=== PATIENT | female | born 1950 | race Caucasian/White ===

== ENCOUNTER → 2019-07-02 | Outpatient (CLI) | payer MEDICARE, BC, OTHER ==
[~2019-07-02] MED LIST: ASPIR 8181 MG PO; BACLOFEN10 MG PO; CLARITIN-D 241 EACH PO; CRESTOR10 MG PO; CYMBALTA30 MG PO; EXCEDRIN PM PO; FLUOXETINE HCL20 M1 PO; IBUPROFEN400 MG PO; LEVOTHYROXINE50 MCG PO; MELOXICAM7.5 MG PO; PANTOPRAZOLE SO40 MG PO; TRAZODONE HCL100 MG PO
[2019-07-02 15:17] LABS: BASOPHILS % 0.4 % (0.0-1.0); EOSINOPHILS # (AUTO) 0.2 (0.0-0.4); EOSINOPHILS % 3.4 % (0.0-6.0); HEMATOCRIT 36.6 % (34.2-44.1); HEMOGLOBIN 12.1 g/dL (12.0-16.0); LYMPHOCYTES # (AUTO) 1.7 (1.0-3.2); LYMPHOCYTES % 30.7 % (18.0-39.1); MEAN CORPUSCULAR HEMOGLOBIN 32.1 pg (28-32); MEAN CORPUSCULAR HGB CONC 33.1 g/dL (31-35); MEAN CORPUSCULAR VOLUME 97.1 fL (81-99); MONOCYTES # (AUTO) 0.5 (0.2-0.8); NEUTROPHILS # (AUTO) 3.2 (2.1-6.9); NEUTROPHILS % 57.3 % (38.7-80.0); PLATELET COUNT 242 x10e3/uL (140-360); RED BLOOD COUNT 3.77 x10e6/uL (3.6-5.1); RED CELL DISTRIBUTION WIDTH 12.1 % (11.7-14.4)
--- NOTE | 2019-07-02 16:01 | Diagnostic Imaging Report ---
EXAMINATION: CHEST 2 VIEWS INDICATION: Pre-operative COMPARISON: None FINDINGS: LINES/TUBES:None LUNGS:The lungs are well-inflated. No focal consolidation or pulmonary edema. PLEURA:No pleural effusion or pneumothorax. MEDIASTINUM:The cardiomediastinal silhouette appears normal in size and shape. BONES/SOFT TISSUES:No acute osseous injury. Degenerative changes of the visualized spine. ABDOMEN:No free air under the diaphragm. IMPRESSION: No focal pneumonia or pulmonary edema. Signed by: Glenn Rojas MD on 07/02/2019 3:58 PM
--- OUTSIDE RECORDS SUMMARY | 2019-07-04 07:11 | XMS REPORT | Clinical Summary ---
Author Author [facility] Address Unknown Phone Unavailable Care Team Providers Care General Production Manager Name Role Phone Leigh Hernandez MD PCP Allergies Comments Active Allergy Reactions Severity Noted Date Sulfa (Sulfonamide 07/05/2016 Antibiotics) Medications End Date Status Medication Sig Dispensed Refills Start Date Active baclofen (LIORESAL) 10 MG 1 tablet 0 tablet three times a 7 day Active FLUoxetine (PROzac) 40 MG 1 capsule 0 capsule once a day 7 Active gabapentin (NEURONTIN) 1 capsule 0 300 mg capsule three times a 7 day Active levothyroxine (SYNTHROID, 1 tablet once 0 LEVOXYL) 100 mcg tablet a day 7 Active MYRBETRIQ 25 mg tablet 1 tablet once 0 extended release 24 hr a day 7 Active aspirin (ECOTRIN) 81 MG Take by 0 enteric coated tablet mouth. 1 tablet once a day Active loratadine (CLARITIN) 10 Take by 0 mg tablet mouth. 1 tablet once a day Active multivitamin Chew. Once a 0 tablet,chewable day Active traZODone (DESYREL) 100 Take 100 mg 0 MG tablet by mouth 9 daily. Active rosuvastatin (CRESTOR) 40 Take 40 mg by 0 201 MG tablet mouth daily. 9 Active pantoprazole (PROTONIX) Take 40 mg by 0 40 MG EC tablet mouth daily. 9 05/07/2019 Discontinued (Med List Cleanup) traMADol (ULTRAM) 50 mg Take by 0 tablet mouth. 1 tablet once a day 09/19/2018 atorvastatin (LIPITOR) 80 Take 1 tablet 30 tablet 11 MG tablet (80 mg total) 7 by mouth daily. Additional information Patient taking differently: (No dose reported), oral, (No frequency reported), 1 tablet once a day, Reported on 09/26/2017 3:43 PM 05/07/2019 Discontinued (Med List Cleanup) CALCIUM CARBONATE Take by 0 (CALCIUM 500 ORAL) mouth. 1 tablet once a day 09/14/2018 Discontinued (Reorder) evolocumab (REPATHA Inject 1 mL 6 Syringe 4 SURECLICK) 140 mg/mL pen (140 mg 8 injector injection total) under the skin every 14 (fourteen) days. 02/04/2019 Discontinued (Reorder) evolocumab (REPATHA Inject 1 mL 6 Syringe 4 SURECLICK) 140 mg/mL pen (140 mg 8 injector total) under injectionIndications: the skin Hyperlipidemia LDL goal every 14 <70, Mixed hyperlipidemia (fourteen) days. 02/04/2019 Discontinued (Reorder) atorvastatin (LIPITOR) 80 Take 80 mg by 0 MG tablet mouth daily. 05/07/2019 Discontinued (Med List Cleanup) atorvastatin (LIPITOR) 80 Take 1 tablet 90 tablet 4 MG tablet (80 mg total) 9 by mouth daily. 05/07/2019 Discontinued (Med List Cleanup) evolocumab (REPATHA Inject 1 mL 6 Syringe 4 SURECLICK) 140 mg/mL pen (140 mg 9 injector total) under injectionIndications: the skin Hyperlipidemia LDL goal every 14 <70, Mixed hyperlipidemia (fourteen) days. Active Problems Problem Noted Date Hypothyroidism (acquired) 09/26/2017 Dyslipidemia 09/26/2017 Essential hypertension 09/26/2017 Cerebrovascular accident (CVA) 09/26/2017 Overview: JUN 2015 S/P REHAB AND WALKING ON HER OWN WITH CANE AT HOME THAN FELL WITH 2 LEFT HIP FRACTURE NOW STILL IN PHYSICAL THERAPY F?U WITH DR TORRES ; KIANNA;L BE PART OF RESEARCH ; NOW REFERRED FOR PT/OCCUPATIONAL THERAPY Continuous leakage of urine 09/26/2017 Hip fracture 09/26/2017 Encounters Care Team Description Date Type Specialty Luis Fernando Coy MD History of stroke (Primary Dx); Cognitive impairment; Mixed hyperlipidemia 05/07/2019 Office Visit Neurology Sarwat Isaac MD 04/05/2019 Telephone Neurology Sarwat Isaac MD Cerebral infarction, unspecified mechanism (HCC) (Primary Dx); Hyperlipidemia LDL goal <70; Mixed hyperlipidemia 02/04/2019 Office Visit Neurology Sammy Collins NP Hyperlipidemia LDL goal <70 (Primary Dx); Mixed hyperlipidemia 09/14/2018 Orders Only Neurology Katie Phan 09/14/2018 Telephone Neurology Sarawt Isaac MD Impending cerebrovascular accident (HCC) (Primary Dx) 08/06/2018 Lab Lab Sarwat Isaac MD Cerebral infarction, unspecified mechanism (HCC) (Primary Dx) 08/06/2018 Office Visit Neurology Katie Phan 08/06/2018 Telephone Neurology after 07/03/2018 Family History Medical History Relation Name Comments No Known Problems Brother Heart disease Father Lung cancer Maternal Grandfather Emphysema Mother Lung cancer Mother Relation Name Status Comments Brother Alive homeless Father (Age 69) Maternal Grandfather Maternal Grandmother Mother (Age 69) Paternal Grandfather Paternal Grandmother Social History Date Tobacco Use Types Packs/Day Years Used Current Every Day Smoker Cigarettes 0.5 30 Smokeless Tobacco: Never Used Drinks/Week oz/Week Comments Alcohol Use No Sex Assigned at Date Recorded Not on file Industry Job Start Date Occupation Not on file Not on file Not on file Travel End Travel History Travel Start No recent travel history available. Last Filed Vital Signs Reading Time Taken Comments Vital Sign 128/72 05/07/2019 3:29 PM CDT Blood Pressure 92 05/07/2019 3:29 PM CDT Pulse - - Temperature - - Respiratory Rate - - Oxygen Saturation - - Inhaled Oxygen Concentration 58.5 kg (129 lb) 05/07/2019 3:29 PM CDT Weight 160 cm (5' 3") 05/07/2019 3:29 PM CDT Height 22.85 05/07/2019 3:29 PM CDT Body Mass Index Plan of Treatment Care Team Description Date Type Specialty Aliza Lyles MD [address] [facility] [address] [place] [address] [phone] 07/15/2019 Office Visit Neurology Sarwat Isaac MD [address] [facility] [address] [place], [place] [id number] 08/12/2019 Office Visit Neurology Minerva Alvarado, PhD [address] [facility] [address] [place] [address] 08/27/2019 Office Visit Neuropsychology Health Maintenance Due Date Last Done Comments SHINGLES VACCINES (#1) 1998 65+ PNEUMOCOCCAL VACCINE 2013 (1 of 2 - PCV13) BREAST CANCER SCREENING 10/09/2015 10/09/2013 INFLUENZA VACCINE 05/09/2019 COLONOSCOPY SCREENING 10/09/2023 10/09/2013 Procedures Comments Procedure Name Priority Date/Time Associated Diagnosis BASIC METABOLIC PANEL Routine 05/30/2019 History of stroke 9:52 AM CDT LIPID PANEL Routine 05/30/2019 Mixed hyperlipidemia 9:52 AM CDT US CAROTID DUPLEX Routine 02/07/2019 Cerebral infarction, BILATERAL 12:00 PM CDT unspecified mechanism (HCC) PV TRANSCRANIAL DOPPLER Routine 02/07/2019 Cerebral infarction, INTRACRANIAL ARTERIES 12:00 PM CDT unspecified mechanism COMPLETE (HCC) ESTIMATED GFR Routine 08/06/2018 1:50 PM CDT COMPREHENSIVE METABOLIC Routine 08/06/2018 Impending cerebrovascular PANEL 1:50 PM CDT accident (HCC) LIPID PANEL Routine 08/06/2018 Impending cerebrovascular 1:50 PM CDT accident (HCC) after 07/03/2018 Results * Lipid panel (05/30/2019 9:52 AM CDT) Only the most recent of 2 results within the time period is included. [facility] Cholesterol, 186 <200 mg/dL [facility] [place] HDL cholesterol 63 >50 mg/dL [facility] [place] Triglycerides 146 <150 mg/dL [facility] [place] LDL cholesterol 98 mg/dL (calc) [facility] calculated Comment: [facility] Reference range: <100 [place] Desirable range <100 mg/dL for primary prevention; <70 mg/dL for patients with CHD or diabetic patients with > or=2 CHD risk factors. LDL-C is now calculated using the Vi calculation, which is a validated novel method providing better accuracy than the Friedewald equation in the estimation of LDL-C. Elmer MARTINEZ et al. [place]. 2013;310(19): 5380-5502 (http://education.AnyPerk.com/faq/RDQ445) Cholesterol/HDL 3.0 <5.0 (calc) [facility] [place] Non-HDL 123 <130 mg/dL (calc) [facility] cholesterol Comment: DIAGNO[facility] For patients with diabetes [place] plus 1 major ASCVD risk factor, treating to a non-HDL-C goal of <100 mg/dL (LDL-C of <70 mg/dL) is considered a therapeutic option. Specimen Blood Narrative Performed At FASTING:YES [facility] FASTING: YES Resulting Agency Comment Performing Organization Information: Site ID: [id number] Name: [facility] Address: [address] [place] [id number] Director: Hilario Funes Performing Organization Address City/State/Zipcode Phone Number [facility] [employer] [address] [address] * Basic metabolic panel (05/30/2019 9:52 AM CDT) Pathologist [facility] Glucose 142 (H) 65 - 99 mg/dL [facility] Comment: DIAGNOSTICS Fasting [place] reference interval For someone without known diabetes, a glucose value >125 mg/dL indicates that they may have diabetes and this should be confirmed with a follow-up test. BUN 19 7 - 25 mg/dL [facility] [place] Creatinine 1.10 (H) 0.60 - 0.93 mg/dL [facility] Comment: DIAGNOSTICS For patients >49 years of age, [place] the reference limit for Creatinine is approximately 13% higher for people identified as -[place]. EGFR Non-Afr. 50 (L) > OR=60 [facility] [place] mL/min/1.73m2 [facility] EGFR 58 (L) > OR=60 [facility] [place] mL/min/1.73m2 [facility] BUN/creatinine 17 6 - 22 (calc) [facility] ratio [facility] [place] Sodium 139 135 - 146 mmol/L [facility] [place] Potassium 4.4 3.5 - 5.3 mmol/L [facility] [place] Chloride 104 98 - 110 mmol/L [facility] [place] CO2 29 20 - 32 mmol/L [facility] [place] Calcium 9.0 8.6 - 10.4 mg/dL [facility] Specimen Blood Narrative Performed At FASTING:YES [facility] FASTING: YES Resulting Agency Comment Performing Organization Information: Site ID: [id number] Name: [facility] Address: [address] [place] [id number] Director: Hilario Funes Performing Organization Address City/[facility] Phone Number [employer] [place] [address] [place] [address] * Pv transcranial Doppler intracranial arteries (02/07/2019 12:00 PM CDT) Specimen Narrative Performed At [facility] [employer] Clinical Indications/Diagnosis: Equipment: [employer] (formerly [employer]) PMD 150 Vessel RIGHTLEFT Ophthalmic Artery Antegrade Antegrade Siphon bruit bruit Anterior Cerebral Artery Normal Normal Middle Cerebral Artery Normal- TIBI 5 Normal- TIBI 5 Posterior Cerebral ArteryNormal Normal Verterbral Artery Normal Normal Basilic Artery Normal Normal TCD MonitoringNegative Negative BHI: >0.69 (normal) AbnormalAbnormal Head Turning Findings: normal cerebral hemodynamic flow seen. normal distal ICA and vertibrobasilar flow seen. Negative spontaneous emboli were detected. BHI: Right MCA=(69-61/61)x100/20=0.66 BHI: Left MCA=(56-53/53)x100/20=0.28 Physician Interpretation of TCD: 1) There is no stenosis in the distal internal carotid arteries or vertebrobasilar arteries. 2) No hemodynamically significant intracranial stenoses in the major branches of the [place]. 3) No spontaneous emboli were detected during monitoring. 4) The cerebrovascular reserve is decreased on the left greater than the right on breath holding. Recommend ultrasound follow-up in 1-2 years or sooner if symptoms develop. Performing Organization Address [facility] Phone Number [employer] [address] [place] [address] * Us carotid duplex (02/07/2019 12:00 PM CDT) L CCA Prox 29 cm/s cm/s [facility] L CCA Prox 77 cm/s cm/s [facility] L ECA Prox 15.00 cm/s cm/s [facility] L ECA Prox 77 cm/s cm/s [facility] R ECA Prox 16.00 cm/s cm/s [facility] L ICA Prox 48 cm/s cm/s [facility] L ICA Prox 168 cm/s cm/s [facility] R ICA Prox 87 cm/s cm/s [facility] R ICA Prox 261 cm/s cm/s [facility] L ICA/CCA Ratio 2.2 cm/s [facility] R ICA/CCA Ratio 4.8 cm/s [facility] R CCA Prox 0 cm/s cm/s [facility] R CCA Prox 55 cm/s cm/s [facility] R ICA Dist 14 cm/s cm/s [facility] R ICA Mid 20 cm/s cm/s [facility] L ICA Dist 24 cm/s cm/s [facility] L ICA DIST 77 cm/s cm/s [facility] R Vert Art 14.00 cm/s cm/s [facility] R ECA Prox 97.00 cm/s cm/s [facility] L ICA Mid 30 cm/s cm/s [facility] L ICA Mid 123 cm/s cm/s [facility] R ICA Dist 34 cm/s cm/s [facility] R ICA Mid 66 cm/s cm/s [facility] L Vert Art 16.00 cm/s cm/s [facility] L Vert Art 45 cm/s cm/s [facility] R Vert Art 44.00 cm/s cm/s [facility] Specimen Narrative Performed At [facility] Physician Interpretation of Carotid Doppler: 1) There is diffuse, calcified plaque in the bilateral carotid arteries. 2) The right internal carotid artery has 70-90% stenosis. 3) The left internal carotid artery has 50-69% stenosis. 4) There are no hemodynamically significant stenoses. 5) Both vertebral arteries flow antegrade. Recommend ultrasound follow-up in 1-2 years or sooner if symptoms develop. Performing Organization Address City/State/Zipcode Phone Number [facility] [address] [place] [address] * Estimated GFR (08/06/2018 1:50 PM CDT) Estimated GFR 65 mL/min/1.73 m2 [facility] DEPARTMENT Comment: OF PATHOLOGY CatergoryUnitsInte AND GENOMIC rpretation MEDICINE G1 >=90 Normal or high G2 60-89Mildly decreased [id number] Mildly to moderately decreased [id number] Moderately to severely decreased G4 15-29Severely decreased G5 <15Kidney failure The eGFR was calculated using the Chronic Kidney Disease Epidemiology Collaboration (CKD-EPI) equation. Interpretation is based on recommendations of the National Kidney Foundation-Kidney Disease Outcomes Quality Initiative (NKF-KDOQI) published in 2014. Specimen Plasma specimen Performing Organization Address City/State/Zipcode Phone Number [address] [address] PATHOLOGY AND GENOMIC MEDICINE * Comprehensive metabolic panel (08/06/2018 1:50 PM CDT) Sodium 138 135 - 148 mEq/L [facility] DEPARTMENT OF PATHOLOGY AND GENOMIC MEDICINE Potassium 5.3 (H) 3.5 - 5.0 mEq/L [facility] DEPARTMENT OF PATHOLOGY AND GENOMIC MEDICINE Chloride 102 98 - 112 mEq/L [facility] DEPARTMENT OF PATHOLOGY AND GENOMIC MEDICINE CO2 26 24 - 31 mEq/L [facility] DEPARTMENT OF PATHOLOGY AND GENOMIC MEDICINE Anion gap 10@ANIO 7 - 15 mEq/L [facility] DEPARTMENT OF PATHOLOGY AND GENOMIC MEDICINE BUN 28 (H) 8 - 23 mg/dL [facility] DEPARTMENT OF PATHOLOGY AND GENOMIC MEDICINE Creatinine 0.90 0.50 - 0.90 mg/dL [facility] DEPARTMENT OF PATHOLOGY AND GENOMIC MEDICINE Glucose 93 65 - 99 mg/dL [facility] DEPARTMENT OF PATHOLOGY AND GENOMIC MEDICINE Calcium 9.4 8.8 - 10.2 mg/dL [facility] DEPARTMENT OF PATHOLOGY AND GENOMIC MEDICINE Protein 7.1 6.3 - 8.3 g/dL [facility] DEPARTMENT Comment: OF PATHOLOGY [place] AND GENOMIC 4.6-7.0 g/dL MEDICINE 1 week 4.4-7.6 g/dL 7 months-1year 5.1-7.3 g/dL 1-2 years5.6-7 .5 g/dL >3 years6.0-8 .0 g/dL 18-150 6.3-8.3 g/dL Albumin 3.8 3.5 - 5.0 g/dL [facility] DEPARTMENT OF PATHOLOGY AND GENOMIC MEDICINE A/G ratio 1.2 0.7 - 3.8 [facility] DEPARTMENT OF PATHOLOGY AND GENOMIC MEDICINE Alkaline 80 35 - 104 U/L [facility] DEPARTMENT phosphatase OF PATHOLOGY AND GENOMIC MEDICINE AST 35 10 - 35 U/L [facility] DEPARTMENT OF PATHOLOGY AND GENOMIC MEDICINE ALT 65 (H) 5 - 50 U/L [facility] DEPARTMENT OF PATHOLOGY AND GENOMIC MEDICINE Total bilirubin <0.2 0.0 - 1.2 mg/dL [facility] DEPARTMENT OF PATHOLOGY AND GENOMIC MEDICINE Specimen Plasma specimen Performing Organization Address City/State/Zipcode Phone Number [place] [address] [address] [place] [address] PATHOLOGY AND GENOMIC MEDICINE after 07/03/2018 Insurance Type Payer Benefit Subscriber ID Effective Phone Address Plan / Dates Group Medicare MEDICARE MEDICARE xxxxxxxxxxx 2014-P AYDE, PART A AND resent [place] B PPO BCBS BCBS xxxxxxxxxxxx 2016- CHOICE Present PPO/NADJA [employer] PPO Advance Directives For more information, please contact: [phone] Patient Physician Office Rep Explanation Type Date Recorded Advance Directives, Living Will and Medical Power of Aquacultural Worker Supervisor Advance Directives, 10/30/2017 1:40 AM Living Will and Medical Power of Aquacultural Worker Supervisor
--- OUTSIDE RECORDS SUMMARY | 2019-07-04 07:11 | XMS REPORT | Clinical Summary ---
Author Author TAYLER [email or web address] [facility] Address Unknown Phone Unavailable Care Team Providers Care Law Office Assistant Name Role Phone Tiago Dong MD PCP Allergies Not on File Medications Not on file Active Problems Not on file Encounters Care Team Description Date Type Specialty Yuriy Adam MD Essential hypertension, malignant; Familial combined hyperlipidemia; Bilateral carotid artery occlusion 09/17/2018 Hospital Encounter Yuriy Adam MD Essential hypertension, malignant (Primary Dx); Familial combined hyperlipidemia; Bilateral carotid artery occlusion 09/17/2018 Orders Only Lab Yuriy Adam MD Essential hypertension, malignant (Primary Dx); Familial combined hyperlipidemia; Bilateral carotid artery occlusion 09/17/2018 Outside Orders after 07/03/2018 Social History Date Tobacco Use Types Packs/Day Years Used Never Assessed Sex Assigned at Date Recorded Not on file Industry Job Start Date Occupation Not on file Not on file Not on file Travel End Travel History Travel Start No recent travel history available. Last Filed Vital Signs Not on file Plan of Treatment Not on file Procedures Comments Procedure Name Priority Date/Time Associated Diagnosis XR CHEST 2 VIEWS Routine 09/17/2018 Essential hypertension, 12:25 PM [employer] malignant Familial combined hyperlipidemia Bilateral carotid artery occlusion CBC W/PLT COUNT & AUTO Routine 09/17/2018 Essential hypertension, DIFFERENTIAL 11:45 AM [employer] malignant Familial combined hyperlipidemia Bilateral carotid artery occlusion BASIC METABOLIC PANEL (7) Routine 09/17/2018 Essential hypertension, 11:45 AM [employer] malignant Familial combined hyperlipidemia Bilateral carotid artery occlusion CBC W/PLT COUNT & AUTO Routine 09/17/2018 Essential hypertension, DIFFERENTIAL 11:45 AM [employer] malignant Familial combined hyperlipidemia Bilateral carotid artery occlusion LIPID PANEL Routine 09/17/2018 Essential hypertension, 11:45 AM [employer] malignant Familial combined hyperlipidemia Bilateral carotid artery occlusion HEPATIC FUNCTION PANEL Routine 09/17/2018 Essential hypertension, 11:45 AM [employer] malignant Familial combined hyperlipidemia Bilateral carotid artery occlusion after 07/03/2018 Results * XR Chest 2 Views (09/17/2018 12:25 PM [employer]) Specimen Narrative Performed At FINAL REPORT GE RIS INDICATION: i65.23 COMPARISON: None TECHNIQUE: Frontal and lateral views of the chest. FINDINGS: Lungs and pleura: Clear lungs. No effusion. Heart and mediastinum: Normal heart size. Unremarkable mediastinal contours. Osseous structures: No acute abnormality. Additional findings: None. IMPRESSION: No acute intrathoracic abnormality. Signed: JR Bell Robert MD Report Verified Date/Time:09/17/2018 12:32:08 Reading Location: [facility] Radiology Reading Room Procedure Note Interface, External Ris In - 09/17/2018 12:34 PM [employer] FINAL REPORT INDICATION: i65.23 COMPARISON: None TECHNIQUE: Frontal and lateral views of the chest. FINDINGS: Lungs and pleura: Clear lungs. No effusion. Heart and mediastinum: Normal heart size. Unremarkable mediastinal contours. Osseous structures: No acute abnormality. Additional findings: None. IMPRESSION: No acute intrathoracic abnormality. Signed: JR Bell Robert MD Report Verified Date/Time: 09/17/2018 12:32:08 Reading Location: [facility] Radiology Reading Room Performing Organization Address City/State/Zipcode Phone Number [facility] * CBC with platelet count + automated diff (09/17/2018 11:45 AM [employer]) WBC 6.1 3.5 - 10.5 K/L [facility] RBC 4.23 3.93 - 5.22 M/L [facility] Hemoglobin 13.7 11.2 - 15.7 GM/DL [facility] Hematocrit 40.9 34.1 - 44.9 % [facility] MCV 96.7 (H) 79.4 - 94.8 fL [facility] MCH 32.4 (H) 25.6 - 32.2 pg [facility] MCHC 33.5 32.2 - 35.5 GM/DL [facility] RDW 11.9 11.7 - 14.4 % [facility] Platelets 289 150 - 450 K/CU MM [facility] MPV 9.7 9.4 - 12.3 fL [facility] nRBC 0 0 - 0 /100 WBC [facility] % Neutros 66 % [facility] % Lymphs 22 % [facility] % Monos 8 % [facility] % Eos 4 % [facility] % Baso 1 % [facility] # Neutros 4.00 1.56 - 6.13 K/L [facility] # Lymphs 1.31 1.18 - 3.74 K/L [facility] # Monos 0.49 (H) 0.24 - 0.36 K/L [facility] # Eos 0.21 0.04 - 0.36 K/L [facility] # Baso 0.03 0.01 - 0.08 K/L [facility] Immature 0 0 - 1 % [facility] Granulocytes-Relative [facility] Specimen Blood Performing Organization Address City/State/Zipcode Phone Number [facility] [address] [place] [address] [facility] * Hepatic function panel (09/17/2018 11:45 AM [employer]) Protein, Total 7.4 6.0 - 8.3 gm/dL [facility] Albumin 4.3 3.5 - 5.0 g/dL [facility] Total Bilirubin 0.3 0.2 - 1.2 mg/dL [facility] Bilirubin, Direct 0.1 0.1 - 0.5 mg/dL [facility] Alkaline Phosphatase 68 40 - 150 U/L [facility] AST 30 5 - 34 U/L [facility] ALT 34 6 - 55 U/L [facility] Specimen Blood Performing Organization Address City/[facility] Phone Number [address] [address] [facility] * Lipid panel (09/17/2018 11:45 AM [employer]) Triglycerides 186 mg/dL [facility] Cholesterol 218 mg/dL [facility] HDL 69 mg/dL [facility] LDL Calculated 112 mg/dL [facility] Specimen Blood Narrative Performed At Triglyceride Reference Range: [facility] Low Risk <150 [facility] [id number] High Risk 200-499 Very High Risk>=500 Cholesterol Reference Range: Low Risk <200 [id number] High Risk>240 HDL Cholesterol Reference Range: Low Risk >=60 High Risk <40 LDL Cholesterol Reference Range: Optimal<100 Near [id number] Very High >=190 Performing Organization Address City/[facility] Phone Number [address] [address] [facility] * Basic Metabolic Panel (09/17/2018 11:45 AM [employer]) Sodium 137 136 - 145 meq/L [facility] Potassium 4.5 3.5 - 5.1 meq/L [facility] Chloride 104 98 - 107 meq/L [facility] CO2 25 22 - 29 meq/L [facility] BUN 25 (H) 7 - 21 mg/dL [facility] Creatinine 0.93 0.57 - 1.25 mg/dL [facility] Glucose 89 70 - 105 mg/dL [facility] Calcium 9.7 8.4 - 10.2 mg/dL [facility] EGFR 60Comment: ESTIMATED GFR IS mL/min/1.73 sq m [facility] NOT ACCURATE CREATININE [facility] CLEARANCE IN PREDICTING GLOMERULAR FILTRATION RATE. ESTIMATED GFR IS NOT APPLICABLE FOR DIALYSIS PATIENTS. Specimen Blood Performing Organization Address City/State/Zipcode Phone Number [facility] [address] [place] [address] [facility] after 07/03/2018 Insurance Payer Benefit Subscriber ID Type Phone Address Plan / Group MEDICARE MEDICARE A xxxxxxxxxxx Medicare B BLUE CROSS/BLUE SHIELD BCBS PPO xxxxxxxxxxxx PPO [phone] [address] [place] [address] CHOICE
--- OUTSIDE RECORDS SUMMARY | 2019-07-04 07:12 | XMS REPORT | Summary of Care ---
Author Author [facility] Address Unknown Phone Unavailable Encounter [facility] Jaimie(GARRET) [id number] Date(s): 09/25/15 - 10/24/15 [place] [id number] [address] Discharge Disposition: Home Attending Physician: Cokoie Rockwell MD Vital Signs No data available for this section Problem List Condition Effective Dates Status Health Status Informant CVA (cerebral Active infarction)(Confirme d) Stroke(Confirmed) Active Hemiplegia of Active nondominant side following CVA (cerebrovascular accident)(Confirmed) Hyperlipidemia(Confi Active rmed) Hypertension(Confirm Active ed) Cognitive deficit Active S/P CVA (cerebrovascular accident)(Confirmed) Hemineglect(Confirme Active d) Oropharyngeal Active dysphagia(Confirmed) Spasticity(Confirmed Resolved ) Thyroid Active disorder(Confirmed) Tobacco Active abuse(Confirmed) Allergies, Adverse Reactions, Alerts Substance Reaction Severity Status sulfa drugs Active Medications No data available for this section Results No data available for this section Immunizations No data available for this section Procedures No data available for this section Social History Social History Type Response Smoking Status Former smoker; Type: Cigarettes; Previous treatment: None; Ready to change: Yes; Concerns about tobacco use in household: No; Exposure to Tobacco Smoke None; Cigarette Smoking Last 365 Days Yes; Reg Smoking Cessation Counseling Yes Assessment and Plan No data available for this section
--- OUTSIDE RECORDS SUMMARY | 2019-07-04 07:12 | XMS REPORT | Summary of Care ---
Author Author [facility] Address Unknown Phone Unavailable Encounter CLARITZA Etienne(GARRET) [id number] Date(s): 08/26/15 - 09/24/15 [facility] [address] [place], [place] [id number] [place] [address] Discharge Disposition: Home Attending Physician: Brett Castro MD Vital Signs Most recent to 1 oldest [Reference Range]: Blood Pressure 137/77 mmHg [90-140/60-90 mmHg] (08/28/15 1:20 PM) Problem List Condition Effective Dates Status Health [...]
--- OUTSIDE RECORDS SUMMARY | 2019-07-04 07:12 | XMS REPORT | Summary of Care ---
Author Author [facility] Organization [facility] Address Unknown Phone Unavailable Encounter CLARITZA Etienne(GARRET) [id number] Date(s): 06/25/15 - 07/21/15 [facility] [id number] [place] [id number] Final: Discharge Disposition: Home Attending Physician: Brett Castro MD Admitting Physician: Brett Castro MD Vital Signs 1 2 3 Most recent to oldest [Reference Range]: 160 cm (06/30/15 6:27 PM) 160.02 cm (06/25/15 3:38 PM) Height 1 2 3 Most recent to oldest [Reference Range]: 98.9 DegF (07/21/15 8:36 AM) 98.3 DegF (07/20/15 8:48 PM) 97.9 DegF (07/20/15 4:58 PM) Temperature Oral [96.4-99.1 DegF] 1 2 3 Most recent to oldest [Reference Range]: 129/77 mmHg (07/20/15 8:48 PM) Blood Pressure [90-140/60-90 mmHg] 131 mmHg (07/21/15 8:36 AM) 129 mmHg (07/20/15 4:58 PM) Systolic Blood Pressure [90-140 mmHg] 1 2 3 Most recent to oldest [Reference Range]: 72 mmHg (07/21/15 8:36 AM) 71 mmHg (07/20/15 4:58 PM) Diastolic Blood Pressure [60-90 mmHg] 1 2 3 Most recent to oldest [Reference Range]: 16 BRMIN (07/21/15 8:36 AM) 16 BRMIN (07/20/15 8:48 PM) 16 BRMIN (07/20/15 4:58 PM) Respiratory Rate [14-20 BRMIN] 1 2 3 Most recent to oldest [Reference Range]: 68 bpm (07/21/15 8:36 AM) 70 bpm (07/20/15 8:48 PM) 73 bpm (07/20/15 4:58 PM) Peripheral Pulse Rate [60-100 bpm] 1 2 3 Most recent to oldest [Reference Range]: 71.4 kg (06/27/15 6:34 PM) 70.455 kg (06/25/15 3:38 PM) Weight 1 2 3 Most recent to oldest [Reference Range]: 27.89 m2 (06/30/15 6:27 PM) 27.51 m2 (06/25/15 3:38 PM) Body Mass Index Problem List Condition Effective Dates Status Health Status Informant CVA (cerebral Active infarction)(Confirme d) Hemiplegia of Active nondominant side following CVA (cerebrovascular accident)(Confirmed) Hyperlipidemia(Confi Active rmed) Hypertension(Confirm Active ed) Cognitive deficit Active S/P CVA (cerebrovascular accident)(Confirmed) Hemineglect(Confirme Active d) Oropharyngeal Active dysphagia(Confirmed) Thyroid Active disorder(Confirmed) Tobacco Active abuse(Confirmed) Allergies, Adverse Reactions, Alerts Substance Reaction Severity Status NKDA Active Medications acetaminophen 325 mg oral tablet 650 mg=2 tab, PO, Q6H, PRN Pain Score 6-10, 0 Refill(s) Start Date: 07/21/15 Status: Ordered aspirin 81 mg tablet, enteric coated 81 mg, 1 tab, Route: PO, Drug form: ECTAB, Daily, Dosing Weight 70.455, kg, Star t date: 06/26/15 6:30:00, Duration: 30 day, Stop date: 08/24/15 6:30:00 Notes: Do not crush or chew.(Same As: Ecotrin) Start Date: 06/26/15 Stop Date: 07/21/15 Status: Discontinued aspirin 81 mg tablet, enteric coated 81 mg=1 tab, PO, Daily, # 120 tab, 0 Refill(s) Start Date: 07/21/15 Stop Date: 11/18/15 Status: Ordered baclofen 15 mg, 1.5 tab, Route: PO, Drug form: TAB, TID, Dosing Weight 71.4, kg, Start da te: 07/01/15 13:00:00, Stop date: 07/31/15 9:00:00 Notes: (Same As: Lioresal) Start Date: 07/01/15 Stop Date: 07/21/15 Status: Discontinued baclofen 10 mg, 1 tab, Route: PO, Drug form: TAB, Bedtime, Dosing Weight 70.455, kg, Star t date: 06/25/15 21:00:00, Duration: 30 day, Stop date: 07/24/15 21:00:00 Notes: (Same As: Lioresal) Start Date: 06/25/15 Stop Date: 07/01/15 Status: Discontinued baclofen 10 mg oral tablet 15 mg=1.5 tab, PO, TID, # 135 tab, 0 Refill(s) Start Date: 07/21/15 Stop Date: 08/20/15 Status: Ordered bisacodyl 10 mg, 1 supp, Route: HI, Drug form: SUPP, Daily, Dosing Weight 70.455, kg, PRN Constipation, Start date: 06/26/15 11:24:00, Duration: 30 day, Stop date: 11:23:00 Notes: (Same As: Dulcolax, Bisco-Lax) Start Date: 06/26/15 Stop Date: 07/21/15 Status: Discontinued Claritin 10 mg, 1 tab, Route: PO, Drug form: TAB, Daily, Start date: 06/26/15 6:30:00, Du ration: 30 day, Stop date: 08/24/15 6:30:00 Notes: 1 hr before meals (Same as: Claritin) Start Date: 06/26/15 Stop Date: 07/21/15 Status: Discontinued Crestor 30 mg, 3 tab, Route: PO, Drug form: TAB, Bedtime, Dosing Weight 70.455, kg, Star t date: 06/25/15 21:00:00, Duration: 30 day, Stop date: 08/23/15 21:00:00 Notes: (Same As: Crestor) Start Date: 06/25/15 Stop Date: 07/21/15 Status: Discontinued Crestor 20 mg oral tablet 20 mg=1 tab, PO, Daily, # 30 tab, 0 Refill(s) Start Date: 07/21/15 Stop Date: 08/20/15 Status: Ordered docusate sodium 100 mg oral capsule 100 mg, 1 cap, Route: PO, Drug form: CAP, BID, Dosing Weight 70.455, kg, Start d ate: 06/25/15 17:00:00, Duration: 30 day, Stop date: 07/25/15 9:00:00 Notes: (Same as: Colace) (Do Not Crush) Start Date: 06/25/15 Stop Date: 06/26/15 Status: Discontinued enoxaparin 40 mg, 0.4 mL, Route: SUB-Q, Drug form: INJ, [id number], Dosing Weight 70.455, kg, Start date: 06/26/15 12:00:00, Duration: 30 day, Stop date: 08/24/15 21:00:00 Notes: (Same as: Lovenox) Start Date: 06/26/15 Stop Date: 07/21/15 Status: Discontinued FLUoxetine 40 mg oral capsule 40 mg=1 cap, PO, Daily, # 30 cap, 0 Refill(s) Start Date: 07/21/15 Stop Date: 08/20/15 Status: Ordered Habitrol 7 mg, 1 patch, Route: TOP, Drug form: ERFILM, Daily, Dosing Weight 70.455, kg, S tart date: 06/26/15 9:00:00, Duration: 30 day, Stop date: 08/24/15 9:00:00 Notes: (Same as: Habitrol)"Remove old patch before application of new patch" Start Date: 06/26/15 Stop Date: 07/21/15 Status: Discontinued ibuprofen 400 mg, 1 tab, Route: PO, Drug form: TAB, Q4H, Dosing Weight 71.4, kg, PRN Pain Score 4-6, Start date: 06/28/15 18:12:00, Duration: 30 day, Stop date: 07/28/15 18:11:00 Notes: (Same as: Motrin)"Do Not Crush" Give with food. Start Date: 06/28/15 Stop Date: 07/21/15 Status: Discontinued Levothroid 125 microgram, 1 tab, Route: PO, Drug form: TAB, [id number], Dosing Weight 70.455, k g, Start date: 06/26/15 6:30:00, Duration: 30 day, Stop date: 08/24/15 6:30:00 Notes: Take 1 hour before or 2 hours after meal; Enteral feeds may interefere wi th the absorption of this medication. (Same as:Levothroid) Start Date: 06/26/15 Stop Date: 07/21/15 Status: Discontinued levothyroxine 125 mcg (0.125 mg) oral tablet 125 microgram=1 tab, PO, Daily, # 30 tab, 0 Refill(s) Start Date: 07/21/15 Stop Date: 08/20/15 Status: Ordered lisinopril 10 mg, 1 tab, Route: PO, Drug form: TAB, Daily, Dosing Weight 70.455, kg, Start date: 06/27/15 9:00:00, Duration: 30 day, Stop date: 08/25/15 9:00:00 Notes: (Same as: Prinivil, Zestril) Start Date: 06/27/15 Stop Date: 07/21/15 Status: Discontinued lisinopril 10 mg oral tablet 10 mg=1 tab, PO, Daily, # 30 tab, 0 Refill(s) Start Date: 07/21/15 Stop Date: 08/20/15 Status: Ordered Lovenox 30 mg, 0.3 mL, Route: SUB-Q, Drug form: INJ, [id number], Dosing Weight 70.455, kg, For CrCl <30mL/min, Start date: 06/26/15 11:00:00, Duration: 30 day, Stop date: 07/25/15 11:00:00 Notes: (Same as: Lovenox) Start Date: 06/26/15 Stop Date: 06/26/15 Status: Discontinued MiraLax 17 gm, 1 pkt, Route: PO, Drug form: PWDR, BID, Dosing Weight 70.455, kg, PRN Con stipation, Start date: 06/26/15 11:24:00, Duration: 30 day, Stop date: 08/25/15 11:23:00 Notes: Dissolve in 8 oz of water or juice.(Same as: Miralax) Start Date: 06/26/15 Stop Date: 07/21/15 Status: Discontinued nicotine 7 mg/24 hr transdermal film, extended release =1 patch, TOP, Daily, X 7 day, # 7 patch, 0 Refill(s) Start Date: 07/21/15 Stop Date: 07/28/15 Status: Ordered PROzac 40 mg, 2 cap, Route: PO, Drug form: CAP, Daily, Dosing Weight 70.455, kg, Start date: 06/26/15 6:30:00, Duration: 30 day, Stop date: 08/24/15 6:30:00 Notes: (Same as: Prozac, Sarafem) Start Date: 06/26/15 Stop Date: 07/21/15 Status: Discontinued tramadol 50 mg, 1 tab, Route: PO, Drug form: TAB, Q6H, Dosing Weight 71.4, kg, PRN Pain S core 4-6, Start date: 06/28/15 18:12:00, Duration: 30 day, Stop date: 07/28/15 1 8:11:00 Notes: Not to exceed 400mg/day. (Same As: Ultram) Start Date: 06/28/15 Stop Date: 07/21/15 Status: Discontinued trazodone 50 mg, 1 tab, Route: PO, Drug form: TAB, Bedtime, Dosing Weight 70.455, kg, PRN Insomnia, Start date: 06/25/15 15:37:00, Duration: 30 day, Stop date: 07/25/15 1 5:36:00 Notes: (Same As: Selwyn) Start Date: 06/25/15 Stop Date: 06/29/15 Status: Discontinued trazodone 25 mg, 0.5 tab, Route: PO, Drug form: TAB, Bedtime, Dosing Weight 70.455, kg, HI N Insomnia, Start date: 06/29/15 10:23:00, Duration: 30 day, Stop date: 07/29/15 10:22:00 Notes: (Same As: Selwyn) Start Date: 06/29/15 Stop Date: 07/21/15 Status: Discontinued trazodone 50 mg oral tablet 50 mg=1 tab, PO, Bedtime, PRN Insomnia, # 30 tab, 0 Refill(s) Start Date: 07/21/15 Stop Date: 08/20/15 Status: Ordered trazodone 50 mg oral tablet 50 mg, 1 tab, Route: PO, Drug form: TAB, Bedtime, Dosing Weight 71.4, kg, PRN In somnia, Start date: 07/20/15 21:00:00, Duration: 30 day, Stop date: 08/19/15 20: 59:00 Notes: (Same As: Desyrel) Start Date: 07/20/15 Stop Date: 07/21/15 Status: Discontinued Tylenol 650 mg, 2 tab, Route: PO, Drug form: TAB, Q6H, Dosing Weight 70.455, kg, PRN Abundio n Score 6-10, Start date: 06/25/15 18:11:00, Duration: 30 day, Stop date: 18:10:00 Notes: Do not exceed 4 gm/day. (Same as: Tylenol) Start Date: 06/25/15 Stop Date: 07/21/15 Status: Discontinued Vitamin C 100 mg, 1 mL, Route: PO, Drug form: LIQ, Daily, Dosing Weight 70.455, kg, Start date: 06/27/15 9:00:00, Duration: 30 day, Stop date: 08/25/15 9:00:00 Notes: (Same as: Vitamin C) Start Date: 06/27/15 Stop Date: 07/21/15 Status: Discontinued Vitamin C 100 mg oral tablet 100 mg=1 tab, PO, Daily, # 30 tab, 0 Refill(s) Start Date: 07/21/15 Stop Date: 08/20/15 Status: Ordered Results ELECTROLYTES 1 2 3 Most recent to oldest [Reference Range]: 140 mEq/L (07/14/15 5:01 AM) 139 mEq/L (06/30/15 5:54 AM) 138 mEq/L (06/26/15 6:29 AM) Sodium Lvl [135-145 mEq/L] 4.4 mEq/L (07/14/15 5:01 AM) 4.0 mEq/L (06/30/15 5:54 AM) 4.0 mEq/L (06/26/15 6:29 AM) Potassium Lvl [3.5-5.1 mEq/L] 108 mEq/L (07/14/15 5:01 AM) 107 mEq/L (06/30/15 5:54 AM) 105 mEq/L (06/26/15 6:29 AM) Chloride Lvl [95-109 mEq/L] 26 mEq/L (07/14/15 5:01 AM) 27 mEq/L (06/30/15 5:54 AM) 25 mEq/L (06/26/15 6:29 AM) CO2 [24-32 mEq/L] 10.4 mEq/L (07/14/15 5:01 AM) 9.0 mEq/L *LOW* (06/30/15 5:54 AM) 12.0 mEq/L (06/26/15 6:29 AM) AGAP [10.0-20.0 mEq/L] CHEM PANEL 1 2 3 Most recent to oldest [Reference Range]: 0.8 mg/dL (07/14/15 5:01 AM) 0.7 mg/dL (06/30/15 5:54 AM) 0.8 mg/dL (06/26/15:29 AM) Creatinine Lvl [0.5-1.4 mg/dL] 77 mL/min/1.73m2 1 *NA* (07/14/15 5:01 AM) 90 mL/min/1.73m2 2 *NA* (06/30/15:54 AM) 77 mL/min/1.73m2 3 *NA* (06/26/15 6:29 AM) eGFR 18 mg/dL (07/14/15 5:01 AM) 16 mg/dL (06/30/15 5:54 AM) 14 mg/dL (06/26/15 6:29 AM) BUN [7-22 mg/dL] 105 mg/dL *HI* (07/14/15 5:01 AM) 107 mg/dL *HI* (06/30/15 5:54 AM) 119 mg/dL *HI* (06/26/15 6:29 AM) Glucose Lvl [70-99 mg/dL] 3.4 g/dL *LOW* (06/26/15 6:29 AM) Albumin Lvl [3.5-5.0 g/dL] 9.2 mg/dL (07/14/15 5:01 AM) 8.5 mg/dL (06/30/15 5:54 AM) 8.5 mg/dL (06/26/15 6:29 AM) Calcium Lvl [8.5-10.5 mg/dL] 3.7 mg/dL (06/26/15 6:29 AM) Phosphorus [2.5-4.5 mg/dL] 2.1 mg/dL (06/26/15 6:29 AM) Magnesium Lvl [1.8-2.4 mg/dL] 29 ng/mL *LOW* (06/26/15 6:29 AM) Vitamin D, 25-OH, Total [30-100 ng/mL] 1Result Comment: The eGFR is calculated using the CKD-EPI formula. In most young, healthy individuals the eGFR will be >90 mL/min/1.73m2. The eGFR declines with age. An eGFR of 60-89 may be normal in some populations, particularly the elderly, for whom the CKD-EPI formula has not been extensively validated. Use of the eGFR is not recommended in the following populations: Individuals with unstable creatinine concentrations, including patients and those with serious co-morbid conditions. Patients with extremes in muscle mass or diet. The data above are obtained from the National Kidney Disease Education Program ( NKDEP) which additionally recommends that when the eGFR is used in patients with extremes of body mass index for purposes of drug dosing, the eGFR should be mul tiplied by the estimated BMI. 2Result Comment: The eGFR is calculated using the CKD-EPI formula. In most young, healthy individuals the eGFR will be >90 mL/min/1.73m2. The eGFR declines with age. An eGFR of 60-89 may be normal in some populations, particularly the elderly, for whom the CKD-EPI formula has not been extensively validated. Use of the eGFR is not recommended in the following populations: Individuals with unstable creatinine concentrations, including patients and those with serious co-morbid conditions. Patients with extremes in muscle mass or diet. The data above are obtained from the National Kidney Disease Education Program ( NKDEP) which additionally recommends that when the eGFR is used in patients with extremes of body mass index for purposes of drug dosing, the eGFR should be mul tiplied by the estimated BMI. 3Result Comment: The eGFR is calculated using the CKD-EPI formula. In most young, healthy individuals the eGFR will be >90 mL/min/1.73m2. The eGFR declines with age. An eGFR of 60-89 may be normal in some populations, particularly the elderly, for whom the CKD-EPI formula has not been extensively validated. Use of the eGFR is not recommended in the following populations: Individuals with unstable creatinine concentrations, including patients and those with serious co-morbid conditions. Patients with extremes in muscle mass or diet. The data above are obtained from the National Kidney Disease Education Program ( NKDEP) which additionally recommends that when the eGFR is used in patients with extremes of body mass index for purposes of drug dosing, the eGFR should be mul tiplied by the estimated BMI. SPECIAL CHEMISTRY 1 2 3 Most recent to oldest [Reference Range]: 5.9 % *HI* (06/26/15 6:29 AM) Hgb A1C [<=5.6 %] THYROID PANEL 1 2 3 Most recent to oldest [Reference Range]: 0.89 ng/dL (06/26/15 6:29 AM) T4 Free [0.76-1.46 ng/dL] 1.450 uIU/mL (06/26/15 6:29 AM) TSH [0.360-3.740 uIU/mL] IMMUNOLOGY 1 2 3 Most recent to oldest [Reference Range]: 20.6 mg/dL (06/26/15 6:29 AM) Prealbumin [18.0-45.0 mg/dL] HEMATOLOGY 1 2 3 Most recent to oldest [Reference Range]: 5.6 K/CMM (07/14/15 5:01 AM) 5.6 K/CMM (06/30/15 5:54 AM) 6.5 K/CMM (06/26/15 6:29 AM) WBC [3.7-10.4 K/CMM] 4.07 M/CMM *LOW* (07/14/15 5:01 AM) 3.92 M/CMM *LOW* (06/30/15 5:54 AM) 3.96 M/CMM *LOW* (06/26/15 6:29 AM) RBC [4.20-5.40 M/CMM] 13.0 g/dL (07/14/15 5:01 AM) 12.6 g/dL (06/30/15 5:54 AM) 12.8 g/dL (06/26/15 6:29 AM) Hgb [12.0-16.0 g/dL] 39.0 % (07/14/15 5:01 AM) 37.5 % (06/30/15 5:54 AM) 38.0 % (06/26/15 6:29 AM) Hct [36.0-48.0 %] 95.8 fL (07/14/15 5: AM) 95.7 fL (06/30/15:54 AM) 95.8 fL (06/26/15: AM) MCV [80.0-98.0 fL] 32.1 pg *HI* (07/14/15: AM) 32.3 pg *HI* (06/30/15:54 AM) 32.2 pg *HI* (06/26/15: AM) MCH [27.0-31.0 pg] 33.5 g/dL (07/14/15: AM) 33.7 g/dL (06/30/15:54 AM) 33.6 g/dL (06/26/15:29 AM) MCHC [32.0-36.0 g/dL] 12.4 % (07/14/15: AM) 12.3 % (06/30/15:54 AM) 12.3 % (06/26/15: AM) RDW [11.5-14.5 %] 231 K/CMM (07/14/15:01 AM) 242 K/CMM (06/30/15:54 AM) 246 K/CMM (06/26/15:29 AM) Platelet [133-450 K/CMM] 8.6 fL (07/14/15 5:01 AM) 8.7 fL (06/30/15:54 AM) 8.7 fL (06/26/15: AM) MPV [7.4-10.4 fL] 48.5 % (07/14/15 5:01 AM) 50.8 % (06/30/15:54 AM) 53.9 % (06/26/15:29 AM) Segs [45.0-75.0 %] 37.9 % (07/14/15 5:01 AM) 34.0 % (06/30/15:54 AM) 30.3 % (06/26/15:29 AM) Lymphocytes [20.0-40.0 %] 9.5 % (07/14/15 5:01 AM) 10.4 % (06/30/15 5:54 AM) 10.8 % (06/26/15 6:29 AM) Monocytes [2.0-12.0 %] 3.6 % (07/14/15 5:01 AM) 4.2 % *HI* (06/30/15 5:54 AM) 4.6 % *HI* (06/26/15 6:29 AM) Eosinophils [0.0-4.0 %] 0.5 % (07/14/15 5:01 AM) 0.6 % (06/30/15 5:54 AM) 0.4 % (06/26/15 6:29 AM) Basophils [0.0-1.0 %] 2.7 K/CMM (07/14/15 5:01 AM) 2.9 K/CMM (06/30/15 5:54 AM) 3.5 K/CMM (06/26/15 6:29 AM) Segs-Bands # [1.5-8.1 K/CMM] 2.1 K/CMM (07/14/15 5:01 AM) 1.9 K/CMM (06/30/15 5:54 AM) 2.0 K/CMM (06/26/15 6:29 AM) Lymphocytes # [1.0-5.5 K/CMM] 0.5 K/CMM (07/14/15 5:01 AM) 0.6 K/CMM (06/30/15 5:54 AM) 0.7 K/CMM (06/26/15 6:29 AM) Monocytes # [0.0-0.8 K/CMM] 0.2 K/CMM (07/14/15 5:01 AM) 0.2 K/CMM (06/30/15 5:54 AM) 0.3 K/CMM (06/26/15 6:29 AM) Eosinophils # [0.0-0.5 K/CMM] 13.8 seconds (06/26/15 6:29 AM) PT [12.0-14.7 seconds] 1.03 (06/26/15 6:29 AM) INR [0.85-1.17] 30.3 seconds (06/26/15 6:29 AM) PTT [22.9-35.8 seconds] Immunizations No data available for this section Procedures No data available for this section Social History Social History Type Response Smoking Status Current every day smoker; Type: Cigarettes; Previous treatment: None; Ready to change: Yes; Concerns about tobacco use in household: No; Exposure to Tobacco Smoke None; Cigarette Smoking Last 365 Days Yes; Reg Smoking Cessation Counseling Yes Assessment and Plan Extracted from: Title: Clinical Document Author: Brett Castro MD Date: 07/20/15 PM&R PROGRESS NOTE CHIEF COMPLAINT IDENTIFICATION: A 65-year-old lady being seen for ongoing rehabilitation needs after having an acute right ischemic basal ganglia infarction with associated left hemiplegia hemineglect homonymous hemianopsia altered cognition. INTERVAL EVENTS AND SUBJECTIVE: All interval events reviewed. No new fevers, chills, nausea, vomiting, chest pains, palpitations, headaches, dizziness, or shortness of breath. Tone stable. No bowel or bladder complaints. No changes in strength or sensation. Mood good. PHYSICAL EXAMINATION: Vitals and Temp: VitalsTmp(F)[id number] 07/20 08:[id number]------ 07/19 [id number]--- 07/19 15:[id number]--- 07/19 08:[id number]--- 07/18 20:[id number]--- 24 Hr Tmax: 98.3F (36.83c) at 07/19 15:53Vital Signs are the last 5 in the past 48 hours. GENERAL: Sitting in the room. PSYCH: Alert, oriented, appropriate and smiling HEENT: Pupils equal, round, reactive to light. Extraocular muscles intact. Moist mucous membranes. CARDIOVASCULAR: 2+ bilateral upper extremity pulses, regular rate and rhythm. PULMONARY: Respirations unlabored, no conversational dyspnea. ABDOMEN: Doughy, nontender, nondistended. GENITOURINARY: No Roland. SKIN: No new breakdown. NEUROMUSCULOSKELETAL: MAS 1+ in the left arm. Trace pronation and finger flexion on left side. EF 2+/5. Left HF 3/5, KE 3/5, ADF 1/5. 5/5 on right. Sensation endorsed to be normal. Improving attention to the left side. Visual hernández intact. Labs (Last four charted values) WBC 5.6(JUL 06)5.6(JUN 22)6.5(SEP 18) Hgb 13.0(JUL 06)12.6(SEP 22)12.8(SEP 18) Hct 39.0(JUL 06)37.5(SEP 22)38.0(SEP 18) Plt 231(JUL 06)242(JUN 22)246(SEP 18) Na 140(JUL 06)139(SEP 22)138(SEP 18) K 4.4(JUL 06)4.0(JUN 22)4.0(SEP 18) CO2 26(JUL 14)27(JUN 30)25(JUN 18) Cl 108(JUL 14)107(JUN 22)105(JUN 18) Cr 0.8(JUL 06)0.7(JUN 22)0.8(JUN 18) BUN 18(JUL 14)16(JUN 22)14(SEP 18) Glucose Random H 105(JUL 06)H 107(JUN 22)H 119(JUN 18) Mg 2.1(JUN 18) Phos 3.7(JUN 18) Ca 9.2(JUL 14)8.5(JUN 22)8.5(JUN 18) PT 13.8(JUN 18) INR 1.03(JUN 18) PTT 30.3(JUN 18) IMAGING DIAGNOSTIC STUDIES: No new imaging. ASSESSMENT AND PLAN: This is a 65-year-old lady with: 1. Acute ischemic right basal ganglia infarction with left spastic hemiplegia and left hemineglect, oropharyngeal dysphagia and altered cognition: -Neuro exam stable. - We will continue post-stroke medical risk reduction as discussed below. - We will continue daily stroke education. -Dr. Gil available. 2. Hypertonicity and Spasticity: -Stable. -Continue daily stretching -cont baclofen to 15 mg PO TID. No adverse effects. -May be candidate for chemodenervation in the future. Discussed the overpowering effect of the EF tone. 3. Oropharyngeal dysphagia: -Improving. -Cont. soft diet with thin liquids 4. Hypertension, tobacco abuse, hyperlipidemia: We are continuing current medications. Continue nicotine supplementation. Continue levothyroxine. Continue the aspirin. 5. Rehabilitation for deficits in mobility, ADLs, IADLs, weakness, incoordination, left hemiplegia, spasticity, oropharyngeal dysphagia, altered cognition and left hemineglect: -All interval therapy notes reviewed. -Tolerating therapy well. -Cont. Rehab plan of care. Eqpt: MWC, cushion, jose a walker, 3 in 1 commode, Transfer bench. 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 ELOS: 07/21. Scheduled appt With Dr. Rockwell 08/20 at 0900
--- OUTSIDE RECORDS SUMMARY | 2019-07-04 07:12 | XMS REPORT | Continuity of Care Document ---
Author Author [employer] Address Unknown Phone Unavailable Care Team Providers Care Medical Staff Director Name Role Phone Shook Unavailable Unavailable Problems Problem Status Onset Date Classification Date Reported Comments Source Pain in left elbow 09/08/2018 01/13/2019 [facility] Sm[facility] Nicotine dependence, cigarettes, with unspecified nicotine-induced disorders 05/01/2018 11/12/2018 [facility] DX: F17.219=NICOTINE DEPENDENCE, CIGARET Active 04/18/2018 [place] F/U Active 03/28/2016 [facility] 600 UNITS Active 02/02/2016 [facility] SPA FU Active 01/26/2016 [facility] BOTOX Active 10/28/2015 [facility] DCF/U Active 08/20/2015 [facility] DC F/U Active 08/19/2015 [facility] STROKE SYMPTOMS Active 06/20/2015 [facility] ACUTE CVA Active 06/20/2015 [facility] CVA Active 10/09/2000 [facility] Final: 07/24/2015 [facility] Effusion, left elbow 01/13/2019 BECKY Smiley CVA (Confirmed) Active Problem 01/13/2019 [facility], BECKY Sm[facility], [facility] [place] Stroke Active Problem 01/13/2019 [facility], BECKY [place],[facility], [facility] [place] 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 [place] Cognitive deficit S/P CVA (Confirmed) Active Problem 01/13/2019 [facility], BEC[facility] [place], [facility] [place] Hemineglect Active Problem 01/13/2019 [facility], [facility] [place],[facility] Oropharyngeal dysphagia Active Problem 01/13/2019 [facility], [facility] [place],[facility] Spasticity Resolved Problem 01/13/2019 [facility] [place],[facility] Thyroid disorder Active Problem 01/13/2019 [facility], [facility] [place],[facility] Tobacco abuse Active Problem 01/13/2019 [facility], [facility] [place],[facility] CVA Active [facility] NICOTINE DEPENDENCE, CIGARETTES, W UNSP Active [facility] Medications Medication Details Route Status Patient Instructions Ordering Provider Order Date Source ibuprofen 200 mg oral tablet 4 tabs, PO, Daily, PRN Pain, # 120 tab, 0 Refill(s) Active 05/12/2016 [facility] onabotulinumtoxinA 600 unit, Route: IM, Drug form: INJ, ONCALL, Dosing Weight 72.273, kg, Start date: 02/16/16 15:00:00 CDT, Duration: 1 doses or timesNotes: "TO BE RECONSTITUTED AND ADMINISTERED ONLY BY A PHYSICIAN" Reconstitute with preservative free NS only. Stability=4 hours after reconstitution. (Same As: Botox) WASTE: F/P - Red; E -Red Pass through med: charges in 1 unit increments. Inactive 02/16/2016 [facility] sodium chloride 20 mL, Route: MISC, Start date: 02/16/16 15:00:00 CDT, Duration: 1 doses or timesNotes: preservative free. Inactive 02/16/2016 [facility] Trazodone Hydrochloride 50 MG Oral Tablet See Instructions, # 30 tab, TAKE ONE TABLET BY MOUTH EVERY NIGHT AT BEDTIME NEEDED FOR INSOMNIA, Pharmacy: [place] [id number] Active 02/04/2016 [facility] baclofen 10 mg oral tablet 15 mg=1.5 tab, PO, QID, # 180 tab, 2 Refill(s), Pharmacy: [place] [id number] Active 09/07/2015 [facility] Vitamin C 100 mg oral tablet 100 mg=1 tab, PO, Daily, # 30 tab, 0 Refill(s) Active 07/21/2015 [facility] Trazodone Hydrochloride 50 MG Oral Tablet 50 mg=1 tab, PO, Bedtime, PRN Insomnia, # 30 tab, 0 Refill(s) Active 07/21/2015 [facility] 24 HR Nicotine 0.292 MG/HR Transdermal Patch =1 patch, TOP, Daily, X 7 day, # 7 patch, 0 Refill(s) Active 07/21/2015 [facility] baclofen 10 mg oral tablet 15 mg=1.5 tab, PO, TID, # 135 tab, 0 Refill(s) Active 07/21/2015 [facility] Aspirin 81 MG Enteric Coated Tablet 81 mg=1 tab, PO, Daily, # 120 tab, 0 Refill(s) Active 07/21/2015 [facility] acetaminophen 325 mg oral tablet 650 mg=2 tab, PO, Q6H, PRN Pain Score 6-10, 0 Refill(s) Active 07/21/2015 [facility] Rosuvastatin calcium 20 MG Oral Tablet [Crestor] 20 mg=1 tab, PO, Daily, # 30 tab, 0 Refill(s) Active 07/21/2015 [facility] lisinopril 10 mg oral tablet 10 mg=1 tab, PO, Daily, # 30 tab, 0 Refill(s) Active 07/21/2015 [facility] levothyroxine 125 mcg (0.125 mg) oral tablet 125 microgram=1 tab, PO, Daily, # 30 tab, 0 Refill(s) Active 07/21/2015 [facility] FLUoxetine 40 mg oral capsule 40 mg=1 cap, PO, Daily, # 30 cap, 0 Refill(s) Active 07/21/2015 [facility] Trazodone Hydrochloride 50 MG Oral Tablet 50 mg, 1 tab, Route: PO, Drug form: TAB, Bedtime, Dosing Weight 71.4, kg, PRN Insomnia, Start date: 07/20/15 21:00:00, Duration: 30 day, Stop date: 08/19/15 20:59:00Notes: (Same As: [place]) No Longer Active 07/21/2015 [facility] Baclofen 15 mg, 1.5 tab, Route: PO, Drug form: TAB, TID, Dosing Weight 71.4, kg, Start date: 07/01/15 13:00:00, Stop date: 07/31/15 9:00:00Notes: (Same As: [place]ac) No Longer Active 07/01/2015 [facility] Trazodone 25 mg, 0.5 tab, Route: PO, Drug form: TAB, Bedtime, Dosing Weight 70.455, kg, PRN Insomnia, Start date: 06/29/15 10:23:00, Duration: 30 day, Stop date: 07/29/15 10:22:00Notes: (Same As: Desyrel) No Longer Active 06/29/2015 [facility] Ibuprofen 400 mg, 1 tab, Route: PO, Drug form: TAB, Q4H, Dosing Weight 71.4, kg, PRN Pain Score 4-6, Start date: 06/28/15 18:12:00, Duration: 30 day, Stop date: 07/28/15 18:11:00Notes: (Same as: Motrin) "Do Not Crush" Give with food. No Longer Active 06/28/2015 [facility] Tramadol 50 mg, 1 tab, Route: PO, Drug form: TAB, Q6H, Dosing Weight 71.4, kg, PRN Pain Score 4-6, Start date: 06/28/15 18:12:00, Duration: 30 day, Stop date: 07/28/15 18:11:00Notes: Not to exceed 400mg/day. (Same As: Ultram) No Longer Active 06/28/2015 [facility] Lisinopril 10 mg, 1 tab, Route: PO, Drug form: TAB, Daily, Dosing Weight 70.455, kg, Start date: 06/27/15 9:00:00, Duration: 30 day, Stop date: 08/25/15 9:00:00Notes: (Same as: Prinivil, Zestril) No Longer Active 06/27/2015 [facility] Vitamin C 100 mg, 1 mL, Route: PO, Drug form: LIQ, Daily, Dosing Weight 70.455, kg, Start date: 06/27/15 9:00:00, Duration: 30 day, Stop date: 08/25/15 9:00:00Notes: (Same as: Vitamin C) No Longer Active 06/27/2015 [facility] Enoxaparin 40 mg, 0.4 mL, Route: SUB-Q, Drug form: INJ, [id number], Dosing Weight 70.455, kg, Start date: 06/26/15 12:00:00, Duration: 30 day, Stop date: 08/24/15 21:00:00Notes: (Same as: Lovenox) No Longer Active 06/26/2015 [facility] Miralax 17 gm, 1 pkt, Route: PO, Drug form: PWDR, BID, Dosing Weight 70.455, kg, PRN Constipation, Start date: 06/26/15 11:24:00, Duration: 30 day, Stop date: 08/25/15 11:23:00Notes: Dissolve in 8 oz of water or juice. (Same as: Miralax) No Longer Active 06/26/2015 [facility] Bisacodyl 10 mg, 1 supp, Route: ND, Drug form: SUPP, Daily, Dosing Weight 70.455, kg, PRN Constipation, Start date: 06/26/15 11:24:00, Duration: 30 day, Stop date: 08/25/15 11:23:00Notes: (Same As: Dulcolax, [place]- Lax) No Longer Active 06/26/2015 [facility] Lovenox 30 mg, 0.3 mL, Route: SUB-Q, Drug form: INJ, [id number], Dosing Weight 70.455, kg, For CrCl Notes: (Same as: Lovenox) Inactive 06/26/2015 [facility] Habitrol 7 mg, 1 patch, Route: TOP, Drug form: ERFILM, Daily, Dosing Weight 70.455, kg, Start date: 06/26/15 9:00:00, Duration: 30 day, Stop date: 08/24/15 9:00:00Notes: (Same as: Habitrol) "Remove old patch before application of new patch" No Longer Active 06/26/2015 [facility] aspirin 81 mg tablet, enteric coated 81 mg, 1 tab, Route: PO, Drug form: ECTAB, Daily, Dosing Weight 70.455, kg, Start date: 06/26/15 6:30:00, Duration: 30 day, Stop date: 08/24/15 6:30:00Notes: Do not crush or chew. (Same As: Ecotrin) No Longer Active 06/26/2015 [facility] Claritin 10 mg, 1 tab, Route: PO, Drug form: TAB, Daily, Start date: 06/26/15 6:30:00, Duration: 30 day, Stop date: 08/24/15 6:30:00Notes: 1 hr before meals (Same as: Claritin) No Longer Active 06/26/2015 [facility] Levothroid 125 microgram, 1 tab, Route: PO, Drug form: TAB, [id number], Dosing Weight 70.455, kg, Start date: 06/26/15 6:30:00, Duration: 30 day, Stop date: 08/24/15 6:30:00Notes: Take 1 hour before or 2 hours after m eal; Enteral feeds may interefere with the absorption of this medication. (Same as:Levothroid) No Longer Active 06/26/2015 [facility] PROzac 40 mg, 2 cap, Route: PO, Drug form: CAP, Daily, Dosing Weight 70.455, kg, Start date: 06/26/15 6:30:00, Duration: 30 day, Stop date: 08/24/15 6:30:00Notes: (Same as: Prozac, Sarafem) No Longer Active 06/26/2015 [facility] Crestor 30 mg, 3 tab, Route: PO, Drug form: TAB, Bedtime, Dosing Weight 70.455, kg, Start date: 06/25/15 21:00:00, Duration: 30 day, Stop date: 08/23/15 21:00:00Notes: (Same As: Crestor) No Longer Active 06/26/2015 [facility] baclofen 10 mg, 1 tab, Route: PO, Drug form: TAB, Bedtime, Dosing Weight 70.455, kg, Start date: 06/25/15 21:00:00, Duration: 30 day, Stop date: 07/24/15 21:00:00Notes: (Same As: Lioresal) No Longer Active 06/26/2015 [facility] Tylenol 650 mg, 2 tab, Route: PO, Drug form: TAB, Q6H, Dosing Weight 70.455, kg, PRN Pain Score 6-10, Start date: 06/25/15 18:11:00, Duration: 30 day, Stop date: 08/24/15 18:10:00Notes: Do not exceed 4 gm/day. (Same as: Tylenol) No Longer Active 06/25/2015 [facility] docusate sodium 100 mg oral capsule 100 mg, 1 cap, Route: PO, Drug form: CAP, BID, Dosing Weight 70.455, kg, Start date: 06/25/15 17:00:00, Duration: 30 day, Stop date: 07/25/15 9:00:00Notes: (Same as: Colace) (Do Not Crush) No Longer Active 06/25/2015 [facility] Trazodone 50 mg, 1 tab, Route: PO, Drug form: TAB, Bedtime, Dosing Weight 70.455, kg, PRN Insomnia, Start date: 06/25/15 15:37:00, Duration: 30 day, Stop date: 07/25/15 15:36:00Notes: (Same As: Desyrel) No Longer Active 06/25/2015 [facility] Fluoxetine 40 mg, 2 cap, Route: PO, Drug form: CAP, Daily, Dosing Weight 70.455, kg, Start date: 06/24/15 9:00:00, Duration: 30 day, Stop date: 07/23/15 6:30:00Notes: (Same as: Prozac, Sarafem) No Longer Active 06/24/2015 [facility] Thyroxine 125 microgram, 1 tab, Route: PO, Drug form: TAB, Daily, Dosing Weight 70.455, kg, Start date: 06/24/15 9:00:00, Duration: 30 day, Stop date: 07/23/15 6:30:00Notes: Take 1 hour before or 2 hours after meal; Enteral feeds may interefere with the absorption of this medication. (Same as:Levothroid) No Longer Active 06/24/2015 [facility] Aspirin 81 MG Enteric Coated Tablet 81 mg, 1 tab, Route: PO, Drug form: ECTAB, Daily, Dosing Weight 70.455, kg, Start date: 06/24/15 9:00:00, Duration: 30 day, Stop date: 07/23/15 6:30:00Notes: Do not crush or chew. (Same As: Ecotrin) No Longer Active 06/24/2015 [facility] 12 HR Loratadine 5 MG / Pseudoephedrine sulfate 120 MG Extended Release Tablet [Claritin- D] 1 tab, Route: PO, Dosing Weight 70.455, kg, Daily, Start date: 06/24/15 9:00:00, Duration: 30 day, Stop date: 07/23/15 9:00:00 No Longer Active 06/24/2015 [facility] Baclofen 10 mg, 1 tab, Route: PO, Drug form: TAB, Bedtime, Dosing Weight 70.455, kg, Start date: 06/23/15 21:00:00, Duration: 30 day, Stop date: 07/22/15 21:00:00Notes: (Same As: Lioresal) No Longer Active 06/24/2015 [facility] rosuvastatin 30 mg, 3 tab, Route: PO, Drug form: TAB, Bedtime, Dosing Weight 70.455, kg, Start date: 06/23/15 21:00:00, Duration: 30 day, Stop date: 07/22/15 21:00:00Notes: (Same As: Crestor) No Longer Active 06/24/2015 [facility] Claritin 10 mg, 1 tab, Route: PO, Drug form: TAB, Daily, Start date: 06/23/15 12:30:00, Duration: 30 day, Stop date: 07/23/15 6:30:00Notes: 1 hr before meals (Same as: Claritin) No Longer Active 06/23/2015 [facility] Sudafed 60 mg, 1 tab, Route: PO, Drug form: TAB, Q6H, Start date: 06/23/15 12:00:00, Duration: 30 day, Stop date: 07/23/15 6:00:00Notes: (Same as: Sudafed) Inactive 06/23/2015 [facility] Docusate 100 mg, 1 cap, Route: PO, Drug form: CAP, BID, Dosing Weight 70.455, kg, Start date: 06/23/15 9:00:00, Duration: 30 day, Stop date: 07/22/15 17:00:00Notes: (Same as: Colace) (Do Not Crush) No Longer Active 06/23/2015 [facility] Ambien 5 mg, 1 tab, Route: PO, Drug form: TAB, Bedtime, Dosing Weight 70.455, kg, PRN Insomnia, Start date: 06/22/15 18:37:00, Duration: 30 day, Stop date: 07/22/15 18:36:00Notes: (Same As: Ambien) No Longer Active 06/22/2015 [facility] Tylenol 650 mg, 2 tab, Route: PO, Drug form: TAB, Q6H, Dosing Weight 70.455, kg, PRN Pain Score 6-10, Start date: 06/22/15 17:58:00, Duration: 30 day, Stop date: 07/22/15 17:57:00Notes: Do not exceed 4 gm/day. (Same as: Tylenol) No Longer Active 06/22/2015 [facility] Lipitor 10 mg, 1 tab, Route: PO, Drug form: TAB, Bedtime, Dosing Weight 70.455, kg, Start date: 06/21/15 21:00:00, Duration: 30 day, Stop date: 07/20/15 21:00:00Notes: (Same As: Lipitor) No Longer Active 06/22/2015 [facility] Nicotine 7 mg, 1 patch, Route: TOP, Drug form: ERFILM, Daily, Dosing Weight 70.455, kg, Start date: 06/21/15 16:00:00, Duration: 30 day, Stop date: 07/21/15 9:00:00Notes: (Same as: Habitrol) "Remove old patch before application of new patch" No Longer Active 06/21/2015 [facility] Morphine 2 mg, 1 mL, Route: IVP, Drug form: INJ, Q4H, Dosing Weight 70.455, kg, PRN Pain Score 7-10, Start date: 06/21/15 14:27:00, Duration: 30 day, Stop date: 07/21/15 14:26:00Notes: (Same as:MORPhine Sulfate) No Longer Active 06/21/2015 [facility] Lovenox 30 mg, 0.3 mL, Route: SUB-Q, Drug form: INJ, [id number], Dosing Weight 70.455, kg, For CrCl Notes: (Same as: Lovenox) No Longer Active 06/21/2015 [facility] Rosuvastatin calcium 20 MG Oral Tablet [Crestor] 20 mg=1 tab, PO, Daily, # 30 tab, 0 Refill(s) On Hold 06/21/2015 [facility] Ativan 2 mg, 1 mL, Route: IVP, Drug form: INJ, ONCE, Dosing Weight 70.455, kg, Start date: 06/21/15 9:24:00, Stop date: 06/21/15 9:24:00Notes: (Same as: Ativan) Inactive 06/21/2015 [facility] Acetaminophen 650 mg, 1 supp, Route: ND, Drug form: SUPP, ONCE, Dosing Weight 70.455, kg, Start date: 06/21/15 8:59:00, Stop date: 06/21/15 8:59:00Notes: Max [id number] mg/day (4 gm/day). (Same as: Tylenol) Inactive 06/21/2015 [facility] Saline Flush 0.9% 10 ml, Route: IVP, Drug Form: INJ, Dosing Weight 100, kg, Q12H, Start date: 06/20/15 21:00:00, Duration: 30 day, Stop date: 07/20/15 9:00:00Notes: (Same as: BD Posiflush) No Longer Active 06/21/2015 [facility] Ativan 1 mg, 0.5 mL, Route: IVP, Drug form: INJ, ONCE, Dosing Weight 70.455, kg, PRN Anxiety, Start date: 06/20/15 20:37:00Notes: (Same as: Ativan) Inactive 06/21/2015 [facility] Aspirin 300 MG Rectal Suppository 300 mg, 1 supp, Route: ND, Drug form: SUPP, Daily, Dosing Weight 70.455, kg, Start date: 06/20/15 17:00:00, Duration: 30 day, Stop date: 07/20/15 9:00:00Notes: Refrigerate. No Longer Active 06/20/2015 [facility] Nitroglycerin 0.4 MG Sublingual Tablet 0.4 mg, 1 tab, Route: SL, Drug form: TAB, Q5Min, Dosing Weight 70.455, kg, PRN Chest Pain, Start date: 06/20/15 16:32:00, Duration: 30 day, Stop date: 07/20/15 16:31:00Notes: (Same as:Nitroquick, Nitrostat) "Do Not Crush" Sublingual tablet No Longer Active 06/20/2015 [facility] Atropine 0.5 mg, 5 mL, Route: IVP, Drug form: INJ, ONCE, Dosing Weight 70.455, kg, PRN Other -See Comment, Start date: 06/20/15 16:32:00, for symptomatic bradycardia No Longer Active 06/20/2015 [facility] Glucose 50 MG/ML / Sodium Chloride 0.0769 MEQ/ML Injectable Solution 1,000 mL, Rate: 60 ml/hr, Infuse over: 16.7 hr, Route: IV, Dosing Weight 70.455 kg, Total Volume: 1,000, Start date: 06/20/15 16:29:00, Duration: 30 day, Stop date: 07/20/15 16:28:00 No Longer Active 06/20/2015 [facility] Vitamin C 100 mg oral tablet 100 mg=1 tab, PO, Daily, # 30 tab, 0 Refill(s) On Hold 06/20/2015 [facility] levothyroxine 125 mcg (0.125 mg) oral tablet 125 microgram=1 tab, PO, Daily, # 30 tab, 0 Refill(s) On Hold 06/20/2015 [facility] lisinopril 10 mg oral tablet 10 mg=1 tab, PO, Daily, # 30 tab, 0 Refill(s) On Hold 06/20/2015 [facility] FLUoxetine 40 mg oral capsule 40 mg=1 cap, PO, Daily, # 30 cap, 0 Refill(s) On Hold 06/20/2015 [facility] Aspirin 325 MG Enteric Coated Tablet 325 mg, 1 tab, Route: PO, Drug form: ECTAB, Daily, Dosing Weight 100, kg, Start date: 06/20/15 15:17:00, Duration: 30 day, Stop date: 07/20/15 9:00:00Notes: (Do Not Crush) Do not crush or chew. Inactive 06/20/2015 [facility] Saline Flush 0.9% 10 ml, Route: IVP, Drug Form: INJ, Dosing Weight 100, kg, PRN, PRN Line Flush, Start date: 06/20/15 15:05:00, Duration: 30 day, Stop date: 07/20/15 15:04:00Notes: (Same as: BD Posiflush) No Longer Active 06/20/2015 [facility] Saline Flush 0.9% 10 mL, Route: IVP, Drug Form: INJ, Dosing Weight 100, kg, PRN, PRN Line Flush, Start date: 06/20/15 12:13:00, Duration: 30 day, Stop date: 07/20/15 12:12:00Notes: (Same as: BD Posiflush) No Longer Active 06/20/2015 [facility] Allergies, Adverse Reactions, Alerts Substance Category Reaction Severity Reaction type Status Date Reported Comments Source sulfa drugs Assertion Gentamicin Sulfate,0.1%,Topical,cream Drug allergy Active [facility] [place] Immunizations No Data Provided for This Section Results Order Name Results Value Reference Range Date Interpretation Comments Source CHEM PANEL eGFR 77 07/14/2015 Result Comment: The eGFR is calculated using the [...] from the National Kidney Disease Education Program (NKDEP) which additionally recommends that when the eGFR is used in patients with extremes of body mass index for purposes of drug dosing, the eGFR should be multiplied by the estimated BMI. [facility] CHEM PANEL Calcium Lvl 9.2 8.5 - 10.5 07/14/2015 [facility] CHEM PANEL Glucose Lvl 105 70 - 99 07/14/2015 [facility] CHEM PANEL BUN 18 7 - 22 07/14/2015 [facility] CHEM PANEL CO2 26 24 - 32 07/14/2015 [facility] CHEM PANEL Creatinine Lvl 0.8 0.5 - 1.4 07/14/2015 [facility] CHEM PANEL Sodium Lvl 140 135 - 145 07/14/2015 [facility] CHEM PANEL Potassium Lvl 4.4 3.5 - 5.1 07/14/2015 [facility] CHEM PANEL Chloride Lvl 108 95 - 109 07/14/2015 [facility] CHEM PANEL AGAP 10.4 10.0 - 20.0 07/14/2015 [facility] HEMATOLOGY Lymphocytes 37.9 20.0 - 40.0 07/14/2015 [facility] HEMATOLOGY Segs 48.5 45.0 - 75.0 07/14/2015 [facility] HEMATOLOGY Monocytes 9.5 2.0 - 12.0 07/14/2015 [facility] HEMATOLOGY Eosinophils 3.6 0.0 - 4.0 07/14/2015 [facility] Monocytes # 0.5 0.0 - 0.8 07/14/2015 [facility] Lymphocytes # 2.1 1.0 - 5.5 07/14/2015 [facility] Segs-Bands # 2.7 1.5 - 8.1 07/14/2015 [facility] HEMATOLOGY Basophils 0.5 0.0 - 1.0 07/14/2015 [facility] Eosinophils # 0.2 0.0 - 0.5 07/14/2015 [facility] MPV 8.6 7.4 - 10.4 07/14/2015 [facility] WBC 5.6 3.7 - 10.4 07/14/2015 [facility] Hct 39.0 36.0 - 48.0 07/14/2015 [facility] Hgb 13.0 12.0 - 16.0 07/14/2015 [facility] RBC 4.07 4.20 - 5.40 07/14/2015 [facility] MCHC 33.5 32.0 - 36.0 07/14/2015 [facility] MCH 32.1 27.0 - 31.0 07/14/2015 [facility] MCV 95.8 80.0 - 98.0 07/14/2015 [facility] Platelet 231 133 - 450 07/14/2015 [facility] RDW 12.4 11.5 - 14.5 07/14/2015 [facility] ELECTROLYTES Sodium Lvl 139 135 - 145 06/30/2015 [facility] ELECTROLYTES Potassium Lvl 4.0 3.5 - 5.1 06/30/2015 [facility] ELECTROLYTES Chloride Lvl 107 95 - 109 06/30/2015 [facility] ELECTROLYTES eGFR 90 06/30/2015 Result Comment: The eGFR is calculated using the [...] from the National Kidney Disease Education Program (NKDEP) which additionally recommends that when the eGFR is used in patients with extremes of body mass index for purposes of drug dosing, the eGFR should be multiplied by the estimated BMI. [facility] ELECTROLYTES Calcium Lvl 8.5 8.5 - 10.5 06/30/2015 [facility] ELECTROLYTES Glucose Lvl 107 70 - 99 06/30/2015 [facility] ELECTROLYTES BUN 16 7 - 22 06/30/2015 [facility] ELECTROLYTES Creatinine Lvl 0.7 0.5 - 1.4 06/30/2015 [facility] ELECTROLYTES CO2 27 24 - 32 06/30/2015 [facility] ELECTROLYTES AGAP 9.0 10.0 - 20.0 06/30/2015 [facility] HEMATOLOGY Segs-Bands # 2.9 1.5 - 8.1 06/30/2015 [facility] HEMATOLOGY Basophils 0.6 0.0 - 1.0 06/30/2015 [facility] HEMATOLOGY Lymphocytes # 1.9 1.0 - 5.5 06/30/2015 [facility] HEMATOLOGY Monocytes # 0.6 0.0 - 0.8 06/30/2015 [facility] HEMATOLOGY Eosinophils # 0.2 0.0 - 0.5 06/30/2015 [facility] HEMATOLOGY Monocytes 10.4 2.0 - 12.0 06/30/2015 [facility] HEMATOLOGY Eosinophils 4.2 0.0 - 4.0 06/30/2015 [facility] HEMATOLOGY Segs 50.8 45.0 - 75.0 06/30/2015 [facility] Lymphocytes 34.0 20.0 - 40.0 06/30/2015 [facility] HEMATOLOGY RDW 12.3 11.5 - 14.5 06/30/2015 [facility] MCHC 33.7 32.0 - 36.0 06/30/2015 [facility] Platelet 242 133 - 450 06/30/2015 [facility] MPV 8.7 7.4 - 10.4 06/30/2015 [facility] WBC 5.6 3.7 - 10.4 06/30/2015 [facility] Hct 37.5 36.0 - 48.0 06/30/2015 [facility] MCH 32.3 27.0 - 31.0 06/30/2015 [facility] MCV 95.7 80.0 - 98.0 06/30/2015 [facility] HEMATOLOGY Hgb 12.6 12.0 - 16.0 06/30/2015 [facility] HEMATOLOGY RBC 3.92 4.20 - 5.40 06/30/2015 [facility] CHEM PANEL Vitamin D, 25-OH, Total 29 30 - 100 06/26/2015 [facility] CHEM PANEL Phosphorus 3.7 2.5 - 4.5 06/26/2015 [facility] CHEM PANEL Magnesium Lvl 2.1 1.8 - 2.4 06/26/2015 [facility] CHEM PANEL Albumin Lvl 3.4 3.5 - 5.0 06/26/2015 [facility] CHEM PANEL eGFR 77 06/26/2015 Result Comment: The eGFR is calculated using the [...] from the National Kidney Disease Education Program (NKDEP) which additionally recommends that when the eGFR is used in patients with extremes of body mass index for purposes of drug dosing, the eGFR should be multiplied by the estimated BMI. [facility] CHEM PANEL Creatinine Lvl 0.8 0.5 - 1.4 06/26/2015 [facility] CHEM PANEL BUN 14 7 - 22 06/26/2015 [facility] CHEM PANEL CO2 25 24 - 32 06/26/2015 [facility] CHEM PANEL Chloride Lvl 105 95 - 109 06/26/2015 [facility] CHEM PANEL Potassium Lvl 4.0 3.5 - 5.1 06/26/2015 [facility] CHEM PANEL Sodium Lvl 138 135 - 145 06/26/2015 [facility] CHEM PANEL Calcium Lvl 8.5 8.5 - 10.5 06/26/2015 [facility] CHEM PANEL Glucose Lvl 119 70 - 99 06/26/2015 [facility] CHEM PANEL AGAP 12.0 10.0 - 20.0 06/26/2015 [facility] HEMATOLOGY Eosinophils # 0.3 0.0 - 0.5 06/26/2015 [facility] HEMATOLOGY Basophils 0.4 0.0 - 1.0 06/26/2015 [facility] HEMATOLOGY Monocytes # 0.7 0.0 - 0.8 06/26/2015 [facility] HEMATOLOGY Lymphocytes # 2.0 1.0 - 5.5 06/26/2015 [facility] HEMATOLOGY Lymphocytes 30.3 20.0 - 40.0 06/26/2015 [facility] HEMATOLOGY Segs 53.9 45.0 - 75.0 06/26/2015 [facility] HEMATOLOGY Eosinophils 4.6 0.0 - 4.0 06/26/2015 [facility] HEMATOLOGY Segs-Bands # 3.5 1.5 - 8.1 06/26/2015 [facility] HEMATOLOGY Monocytes 10.8 2.0 - 12.0 06/26/2015 [facility] HEMATOLOGY INR 1.03 0.85 - 1.17 06/26/2015 [facility] HEMATOLOGY PTT 30.3 22.9 - 35.8 06/26/2015 [facility] HEMATOLOGY PT 13.8 12.0 - 14.7 06/26/2015 [facility] HEMATOLOGY Hgb 12.8 12.0 - 16.0 06/26/2015 [facility] HEMATOLOGY MCV 95.8 80.0 - 98.0 06/26/2015 [facility] HEMATOLOGY Hct 38.0 36.0 - 48.0 06/26/2015 [facility] HEMATOLOGY RDW 12.3 11.5 - 14.5 06/26/2015 [facility] HEMATOLOGY MPV 8.7 7.4 - 10.4 06/26/2015 [facility] HEMATOLOGY Platelet 246 133 - 450 06/26/2015 [facility] HEMATOLOGY RBC 3.96 4.20 - 5.40 06/26/2015 [facility] HEMATOLOGY WBC 6.5 3.7 - 10.4 06/26/2015 [facility] HEMATOLOGY MCH 32.2 27.0 - 31.0 06/26/2015 [facility] HEMATOLOGY MCHC 33.6 32.0 - 36.0 06/26/2015 [facility] IMMUNOLOGY Prealbumin 20.6 18.0 - 45.0 06/26/2015 [facility] SPECIAL CHEMISTRY Hgb A1C 5.9 <=5.6 % 06/26/2015 [facility] THYROID PANEL TSH 1.450 0.360 - 3.740 06/26/2015 [facility] THYROID PANEL T4 Free 0.89 0.76 - 1.46 06/26/2015 [facility] CARDIAC ENZYMES Total CK 516 12 - 191 06/23/2015 [facility] ELECTROLYTES AGAP 9.5 10.0 - 20.0 06/23/2015 [facility] ELECTROLYTES Chloride Lvl 108 95 - 109 06/23/2015 [facility] ELECTROLYTES Sodium Lvl 138 135 - 145 06/23/2015 [facility] ELECTROLYTES Potassium Lvl 3.5 3.5 - 5.1 06/23/2015 [facility] ELECTROLYTES eGFR 90 06/23/2015 Result Comment: The eGFR is calculated using the [...] from the National Kidney Disease Education Program (NKDEP) which additionally recommends that when the eGFR is used in patients with extremes of body mass index for purposes of drug dosing, the eGFR should be multiplied by the estimated BMI. [facility] ELECTROLYTES BUN 10 7 - 22 06/23/2015 [facility] ELECTROLYTES Calcium Lvl 8.8 8.5 - 10.5 06/23/2015 [facility] ELECTROLYTES Creatinine Lvl 0.7 0.5 - 1.4 06/23/2015 [facility] ELECTROLYTES CO2 24 24 - 32 06/23/2015 [facility] ELECTROLYTES Glucose Lvl 123 70 - 99 06/23/2015 [facility] HEMATOLOGY MPV 8.6 7.4 - 10.4 06/23/2015 [facility] HEMATOLOGY Platelet 234 133 - 450 06/23/2015 [facility] HEMATOLOGY RBC 3.79 4.20 - 5.40 06/23/2015 [facility] HEMATOLOGY WBC 6.3 3.7 - 10.4 06/23/2015 [facility] HEMATOLOGY Hgb 12.3 12.0 - 16.0 06/23/2015 [facility] HEMATOLOGY MCV 94.7 80.0 - 98.0 06/23/2015 [facility] HEMATOLOGY Hct 35.9 36.0 - 48.0 06/23/2015 [facility] MCH 32.4 27.0 - 31.0 06/23/2015 [facility] HEMATOLOGY MCHC 34.2 32.0 - 36.0 06/23/2015 [facility] HEMATOLOGY RDW 12.4 11.5 - 14.5 06/23/2015 [facility] HEMATOLOGY Basophils 0.4 0.0 - 1.0 06/23/2015 [facility] HEMATOLOGY Lymphocytes # 1.9 1.0 - 5.5 06/23/2015 [facility] HEMATOLOGY Monocytes # 0.7 0.0 - 0.8 06/23/2015 [facility] HEMATOLOGY Segs-Bands # 3.5 1.5 - 8.1 06/23/2015 [facility] HEMATOLOGY Eosinophils # 0.2 0.0 - 0.5 06/23/2015 [facility] HEMATOLOGY Monocytes 11.2 2.0 - 12.0 06/23/2015 [facility] HEMATOLOGY Eosinophils 2.5 0.0 - 4.0 06/23/2015 [facility] HEMATOLOGY Segs 55.6 45.0 - 75.0 06/23/2015 [facility] HEMATOLOGY Lymphocytes 30.3 20.0 - 40.0 06/23/2015 [facility] CARDIAC ENZYMES Total CK 672 12 - 191 06/22/2015 [facility] ELECTROLYTES AGAP 9.7 10.0 - 20.0 06/22/2015 [facility] ELECTROLYTES Calcium Lvl 9.2 8.5 - 10.5 06/22/2015 [facility] ELECTROLYTES CO2 25 24 - 32 06/22/2015 [facility] ELECTROLYTES eGFR 90 06/22/2015 Result Comment: The eGFR is calculated using the [...] from the National Kidney Disease Education Program (NKDEP) which additionally recommends that when the eGFR is used in patients with extremes of body mass index for purposes of drug dosing, the eGFR should be multiplied by the estimated BMI. [facility] ELECTROLYTES Sodium Lvl 139 135 - 145 06/22/2015 [facility] ELECTROLYTES Creatinine Lvl 0.7 0.5 - 1.4 06/22/2015 [facility] ELECTROLYTES BUN 17 7 - 22 06/22/2015 [facility] ELECTROLYTES Glucose Lvl 119 70 - 99 06/22/2015 [facility] ELECTROLYTES Potassium Lvl 3.7 3.5 - 5.1 06/22/2015 [facility] ELECTROLYTES Chloride Lvl 108 95 - 109 06/22/2015 [facility] CARDIAC ENZYMES Total CK 1397 12 - 191 06/21/2015 [facility] ELECTROLYTES Chloride Lvl 110 95 - 109 06/21/2015 [facility] ELECTROLYTES Potassium Lvl 4.0 3.5 - 5.1 06/21/2015 [facility] ELECTROLYTES eGFR 77 06/21/2015 Result Comment: The eGFR is calculated using the [...] from the National Kidney Disease Education Program (NKDEP) which additionally recommends that when the eGFR is used in patients with extremes of body mass index for purposes of drug dosing, the eGFR should be multiplied by the estimated BMI. [facility] ELECTROLYTES Calcium Lvl 8.6 8.5 - 10.5 06/21/2015 [facility] ELECTROLYTES Sodium Lvl 141 135 - 145 06/21/2015 [facility] ELECTROLYTES Creatinine Lvl 0.8 0.5 - 1.4 06/21/2015 [facility] ELECTROLYTES Glucose Lvl 121 70 - 99 06/21/2015 [facility] ELECTROLYTES BUN 19 7 - 22 06/21/2015 [facility] ELECTROLYTES AGAP 10.0 10.0 - 20.0 06/21/2015 [facility] ELECTROLYTES CO2 25 24 - 32 06/21/2015 [facility] SPECIAL CHEMISTRY Hgb A1C 5.9 <=5.6 % 06/21/2015 [facility] LIPIDS VLDL 16 06/20/2015 [facility] LIPIDS LDL (Calculated) 95 <=99 mg/dL 06/20/2015 [facility] LIPIDS HDL 86 >=61 mg/dL 06/20/2015 [facility] LIPIDS CHD Risk 2.29 3.90 - 5.80 06/20/2015 [facility] LIPIDS Chol 197 <=199 mg/dL 06/20/2015 [facility] LIPIDS Trig 79 <=149 mg/dL 06/20/2015 [facility] URINE AND STOOL UA Urobilinogen <=1.0 mg/dL 0.1 - 1.0 06/20/2015 [facility] URINE AND STOOL UA Glucose Negative mg/dL Negative mg/dL 06/20/2015 [facility] URINE AND STOOL UA Protein Negative mg/dL Negative mg/dL 06/20/2015 [facility] URINE AND STOOL UA pH 5.0 5.0 - 8.0 06/20/2015 [facility] URINE AND STOOL UA Bili Negative *NA* (06/20/15 1:24 PM) Negative 06/20/2015 [facility] URINE AND STOOL UA Ketones Negative mg/dL Negative mg/dL 06/20/2015 [facility] URINE AND STOOL UA Sq Epi Occasional /LPF Few /LPF 06/20/2015 [facility] URINE AND STOOL UA Leuk Est Negative (06/20/15 1:24 PM) Negative 06/20/2015 [facility] URINE AND STOOL UA Nitrite Negative (06/20/15 1:24 PM) Negative 06/20/2015 [facility] URINE AND STOOL UA Blood Negative (06/20/15 1:24 PM) Negative 06/20/2015 [facility] URINE AND STOOL UA WBC 3 0 - 5 06/20/2015 [facility] URINE AND STOOL UA RBC 4 0 - 2 06/20/2015 [facility] URINE AND STOOL UA Mucus Many /LPF None Seen /LPF 06/20/2015 [facility] URINE AND STOOL UA Bacteria Occasional /HPF None Seen /HPF 06/20/2015 [facility] URINE AND STOOL UA Turbidity Clear (06/20/15 1:24 PM) Clear 06/20/2015 [facility] URINE AND STOOL UA Spec Grav 1.015 <=1.030 06/20/2015 [facility] URINE AND STOOL UA Color Yellow *NA* (06/20/15 1:24 PM) Yellow 06/20/2015 [facility] CARDIAC ENZYMES CK MB Index 2.4 0.0 - 2.5 06/20/2015 [facility] CARDIAC ENZYMES Troponin-I <0.02 0.00 - 0.40 06/20/2015 [facility] CARDIAC ENZYMES CK MB 9.2 0.5 - 3.6 06/20/2015 [facility] CHEM PANEL Alk Phos 66 39 - 136 06/20/2015 [facility] CHEM PANEL A/G Ratio 1.1 0.7 - 1.6 06/20/2015 [facility] CHEM PANEL Bili Total 0.3 0.2 - 1.3 06/20/2015 [facility] CHEM PANEL AST 31 0 - 37 06/20/2015 [facility] CHEM PANEL B/C Ratio 30 6 - 25 06/20/2015 [facility] CHEM PANEL Albumin Lvl 3.9 3.5 - 5.0 06/20/2015 [facility] CHEM PANEL Globulin 3.6 2.0 - 4.0 06/20/2015 [facility] CHEM PANEL ALT 55 0 - 65 06/20/2015 [facility] CHEM PANEL Total Protein 7.5 6.4 - 8.4 06/20/2015 [facility] HEMATOLOGY Monocytes # 0.6 0.0 - 0.8 06/20/2015 [facility] HEMATOLOGY Basophils 0.2 0.0 - 1.0 06/20/2015 [facility] HEMATOLOGY Segs-Bands # 9.3 1.5 - 8.1 06/20/2015 [facility] HEMATOLOGY Lymphocytes # 0.7 1.0 - 5.5 06/20/2015 [facility] HEMATOLOGY Eosinophils 0.1 0.0 - 4.0 06/20/2015 [facility] HEMATOLOGY Monocytes 5.5 2.0 - 12.0 06/20/2015 [facility] HEMATOLOGY Segs 87.2 45.0 - 75.0 06/20/2015 [facility] HEMATOLOGY Lymphocytes 7.0 20.0 - 40.0 06/20/2015 [facility] HEMATOLOGY MCH 32.1 27.0 - 31.0 06/20/2015 [facility] HEMATOLOGY MCHC 33.4 32.0 - 36.0 06/20/2015 [facility] HEMATOLOGY MPV 8.7 7.4 - 10.4 06/20/2015 [facility] HEMATOLOGY RDW 12.5 11.5 - 14.5 06/20/2015 [facility] HEMATOLOGY Platelet 265 133 - 450 06/20/2015 [facility] HEMATOLOGY Hct 41.5 36.0 - 48.0 06/20/2015 [facility] HEMATOLOGY MCV 96.1 80.0 - 98.0 06/20/2015 [facility] HEMATOLOGY RBC 4.32 4.20 - 5.40 06/20/2015 [facility] HEMATOLOGY WBC 10.7 3.7 - 10.4 06/20/2015 [facility] HEMATOLOGY Hgb 13.8 12.0 - 16.0 06/20/2015 [facility] HEMATOLOGY INR 0.95 0.85 - 1.17 06/20/2015 [facility] HEMATOLOGY PT 13.0 12.0 - 14.7 06/20/2015 [facility] PTT 30.5 22.9 - 35.8 06/20/2015 [facility] Pathology Reports No Data Provided for This Section Diagnostic Reports Report Value Date Source Elbow 2 views DX Radiograph of the LEFT elbow Clinical Indication: Left elbow pain. Comparison: None. Technique: 2 views left elbow FINDINGS: There is osteopenia, which limits evaluation for lytic lesions. No definitive evidence of acute fracture. Joint spaces are intact. Small enthesophytes noted along the distal humerus. There is an elbow joint effusion. In the setting of trauma, this can reflect occult fracture. Other alternative etiologies of an elbow joint effusion should be considered. Correlate clinically. Normal alignment. If there is persistent clinical concern, CT or MRI can be obtained for further evaluation. IMPRESSION: Elbow joint effusion. If there is been trauma, this is suggestive of possible occult fracture. Correlate clinically. No definitive displaced fracture. Consider follow-up if indicated. SL: [id number] [facility] [place] [facility] Dose Lung Screening CT Low Dose Lung Screening HISTORY: Asymptomatic patient meeting NCCN high-risk criteria for lung screening. Patient is currently a smoker. There is a 30 pack-year history of smoking. COMPARISON: None. TECHNIQUE: Noncontrast, volumetric low-dose CT Chest. nMg=216 mA=35; CT Dlvol=2.46mGy Total DLP: 96 \\T\\ CTDI 2.46 FINDINGS: LUNG NODULES: Detail below:. 1. Right lung, 6 mm ground glass nodule-- new; on series 4 slice 35 Other Lung Disease: Mild biapical pleural parenchymal scarring. Aorta: No aneurysm. Heart / Pericardium: Normal size. No pericardial effusion.. Coronary arteries: Coronary artery calcifications. Adenopathy: No significant lymphadenopathy noted. Base of Neck: No significant findings. Upper Abdomen: Cholelithiasis. OTHER INCIDENTALS: No significant findings. LUNG-RADS CATEGORY AND IMPRESSION: Lung-Rads Category: Category 3: Positive, indeterminate findings which are likely benign but require follow-up. Recommend LDCT in 6 months. If nodule stable on f/u CT, recode as Cat. 2 and return to screening. Initially a 3 month low-dose CT follow-up is recommended. Category C -- History of lung cancer: None. Category S -- Other findings requiring urgent evaluation: None. Thank you for choosing the [facility] Lung Screening [facility]. SL: [id number] 04/25/2018 [facility] Neck CTA NECK CTA HISTORY: Bilateral carotid stenosis COMPARISON: CTA neck dated 06/21/2015 and carotid Doppler ultrasound dated 03/07/2017 TECHNIQUE: Thin collimation axial dynamic postcontrast images were obtained from the thoracic inlet to the skull base for the purposes of evaluating the vascular structures. Reformatted images in the coronal, sagittal, and axial plane were included for interpretation. 3-D reconstructions were included. Any reported internal carotid artery stenosis references the distal internal carotid diameter as the denominator for stenosis measurement. NECK: The origin of the brachiocephalic, left carotid, and left subclavian arteries are normal. Both common arteries have normal caliber and contour. High-grade critical stenosis of the right internal carotid artery in the neck at its origin with trace flow throughout the right internal carotid artery in the neck and skull base. Note that on prior CTA the right internal carotid artery was occluded with no flow in the neck and robust reconstitution at the skull base. This robust reconstitution on the prior exam is no longer seen. Unchanged nonopacification of the proximal right MCA with diminutive flow diffusely in the distal right MCA branches. Moderate focal stenosis at the origin of the left internal carotid artery in the neck related to atherosclerotic plaque is unchanged the prior study and estimated at 45-55% by NASCET criteria. The bilateral vertebral arteries in the neck are normal. IMPRESSION: 1. Critical stenosis (90-99%) at the origin of the left internal carotid artery in the neck with trace flow centrally throughout the left internal carotid artery in the neck and skull base (string sign). 2. Note that on prior CTA the right internal carotid artery was occluded at its origin with no flow in the neck and robust reconstitution at the skull base. This robust reconstitution on the prior exam is no longer seen. 3. Unchanged appearance of limited flow in the right MCA. 4. Unchanged moderate focal stenosis of the origin of left internal carotid artery in the neck estimated at 45-55% by NASCET criteria. 5. Normal vertebral arteries. SL: [id number] 06/27/2017 [facility] Brain wo contrast MRI MRI BRAIN WITHOUT CONTRAST INDICATION: Stroke COMPARISON: MRI brain 06/27/2015 DISCUSSION: There is a large chronic lacunar infarct of the right basal ganglia and a chronic infarct of the opercular right frontal lobe. There is associated Wallerian degeneration. The gradient echo sequence demonstrates evidence of previous hemorrhagic transformation. The signal of the hemorrhage, around the right basal ganglia, is T1 and T2 hyperintense, suggesting a late subacute phase. The normal flow void of the right ICA is absent. This finding is unchanged. There is no evidence of acute vascular insults, space occupying lesions, acute hemorrhage, hydrocephalus, midline shift, or extra-axial fluid collections. No suprasellar, craniocervical, or bone abnormalities are seen. IMPRESSION: 1. Chronic infarcts of the right basal ganglia and right frontal operculum, associated with Wallerian degeneration and a late subacute hemorrhage. There is stable complete occlusion or severe flow limiting stenosis of the right ICA. 2. No acute intracranial abnormalities are visualized. SL:16 03/07/2017 [facility] [place] Carotid artery Doppler bilat US PROCEDURE: CAROTID ULTRASOUND CLINICAL INDICATION: I63.8. Stroke. COMPARISON: Carotid ultrasound 06/20/2015. Report of a brain/neck CTA performed 06/21/2015 was reviewed. TECHNIQUE: Huitron-scale, color Doppler and spectral Doppler of the cervical carotid arteries was performed. Static images are submitted. Any reported ICA stenoses indirectly reference the distal internal carotid artery diameter as the denominator for the stenosis measurement, utilizing consensus panel criteria. FINDINGS: RIGHT: There is moderate to severe calcific plaque in the right carotid bulb and proximal right internal carotid artery. ICA PSV: 141 cm/s. CCA PSV: 71.1 cm/s. ICA/CCA ratio: 1.98. Vertebral flow is antegrade. External carotid artery is patent. LEFT: There is mild to moderate mixed calcific and soft plaque in the left carotid bulb. ICA PSV: 134 cm/s. CCA PSV: 159 cm/s. ICA/CCA ratio: 0.84. Vertebral flow is antegrade. External carotid artery is patent. IMPRESSION: 1. Carotid arterial vascular disease. 2. Sonographic findings suggesting 50-69% stenosis in the bilateral internal carotid arteries by velocity criteria. 3. Bilateral vertebral flow is antegrade. Consensus panel Doppler US criteria for diagnosis of ICA stenosis: Stenosis (%) ICA PSV (cm/sec) ICA/CCA ratio <50 <125 <2.0 50-69 125-230 2.0-4.0 >70 but less than >230 >4.0 near occlusion Near occlusion High, low, or Variable undetectable SL: 15 03/07/2017 [facility] [place] [facility] wo contrast MRI MRI Brain without IV contrast, Jun 27, 2015 08:20:00 PM CLINICAL HISTORY: Hemiparesis ; See Clinic Indication TECHNIQUE: Multiplanar, multisequence magnetic resonance images of the brain were obtained without IV gadolinium injection. COMPARISON: None FINDINGS: Extensive restricted diffusion associated with T2 FLAIR hyperintensity is noted in most of the right basal ganglia and in the right frontal lobe subcortical white matter operculum. Mild mass effect is present causing 3 mm of right to left midline shift at the level of the septum pellucidum. Minimal T1 hyperintensity is noted in this affected area the right basal ganglia. No mass or fluid collection is identified. The right MCA M1 segment and proximal M2 segment demonstrates slight heterogeneous T2 isointensity and therefore possibly a partial loss of the normal flow-void. Otherwise, flow voids are patent. The ventricles, sulci and cisterns are normal. The pituitary gland is normal in size. The cerebellar tonsils are normal in position. Orbits are normal. IMPRESSION: 1. Early subacute ischemic infarction involving most of the right basal ganglia and the operculum area of the right frontal lobe. Possible early minimal petechial hemorrhage formation in the affected right basal ganglia. 2. 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 These important findings were conveyed to nurse Sharpe from the floor today at 2140. SL: 14 06/27/2015 [facility] Esophagus BA swallow function video DX Modified Barium Swallow: CLINICAL HX: Dysphagia, CVA Fluoroscopic assistance was provided for the speech pathologist for the modified barium swallow examination. FINDINGS: The patient demonstrated laryngeal penetration with thin consistency barium. Chin tuck maneuver had no benefit. The patient tolerated nectar consistency, pudding consistency barium and barium with cracker preparations without significant difficulty. No evidence for penetration or aspiration is noted with the above consistencies. Please, see report by the speech pathologist for additional details. Fluoroscopy Time: 0.9 minutes SL:06/22/2015 [facility] Brain/Neck CTA EXAM: BRAIN CTA WITH CONTRAST EXAM: NECK CTA WITH CONTRAST DATE: Jun 21, 2015 04:20:59 PM INDICATION: Left hemiparesis. Right internal carotid artery stenosis COMPARISON: CT head 06/20/2015. TECHNIQUE Rapid acquisition spiral images were obtained between the aortic arch and the cranial vertex during intravenous contras. Reconstructed axial images and angiographic 3D maximum intensity projections (MIP). FINDINGS: CTA BRAIN: There is asymmetric mild narrowing of the right cavernous and supraclinoid internal carotid arteries. Occlusion of the right M1 segment of the middle cerebral artery is seen. Numerous small arterial collaterals are seen supplying the M2 and M3 segments of the right middle cerebral artery. The right A1 segment of anterior cerebral artery is asymmetrically small in caliber. An anterior communicating artery is seen. Left posterior communicating artery is seen. Right posterior cerebral artery is identified. The right intradural vertebral artery is dominant. Basilar artery is patent. Left posterior inferior cerebral artery is not identified. Bilateral anterior/inferior cerebral arteries are small in caliber. There are no enhancing intracranial lesions Bilateral orbits are symmetric No intracranial collections are seen. Acute infarct of the right basal ganglia is again seen with effacement of the right frontal horn. No hydrocephalus or herniation is seen. The paranasal sinuses, mastoid air cells and auditory canals are clear. No skull fracture is demonstrated. CTA NECK: The common carotid arteries are normal in size. There is ossifications of the right carotid bulb and proximal internal carotid artery with occlusion of the right internal carotid artery up to the level of the [place] portion of the internal carotid artery. Moderate calcifications of the left carotid bulb and proximal internal carotid artery are seen with approximately 40% stenosis of the proximal internal carotid artery. Arch anatomy is conventional. The right vertebral artery is dominant. Nonvascular findings: Multilevel degenerative disc disease and facet arthropathy is seen. No cervical lymphadenopathy is present. Thyroid and salivary glands are unremarkable. No pharyngeal soft tissue abnormality is seen. No masses or consolidation are seen in the imaged lung apices IMPRESSION: 1. Occlusion of the right internal carotid artery from its origin to the petrous portion of the internal carotid artery. There are severe calcifications of the right carotid bulb and origin of the internal carotid artery. 2. Moderate calcifications of the left carotid bulb and original internal carotid artery with approximately 40% stenosis. 3. Occlusion of the right M1 segment of the middle cerebral artery. Multiple small collaterals are seen supplying the right M2 and M3 branches. All quantitative and qualitative assessments of the carotid bifurcation and proximal internal carotid artery stenosis are made at referencing the distal internal carotid artery. SL: 06/21/2015 [facility] Carotid artery Doppler bilat US PROCEDURE: Bilateral Doppler Carotid Duplex Ultrasound. INDICATION: Hemiplegia (flaccid/spastic/Dom/NonDom). FINDINGS: The bilateral cervical carotid circulation was evaluated from the angles of the mandible to the base of the neck utilizing high resolution color duplex sonography. SPECTRAL waveform was also obtained. Grayscale and color-flow imaging: Marked atherosclerotic calcification of the proximal right internal carotid artery. Velocity measurements (Peak systolic velocity): Right common carotid artery: 69 cm/sec , Right carotid bulb: 56 cm/s, Right internal carotid artery: 121 cm/s, Left common carotid artery: 135 cm/s, Left carotid bulb: 117 cm/s, Left internal carotid artery: 264 cm/s. The right ICA/CCA ratio is 1.9 and left ICA/CCA ratio is 2.0 both are within normal limits. Vertebral arteries: Antegrade flow demonstrated bilaterally. CONCLUSION: 1. Greater than 70% stenosis of the proximal left internal carotid artery. 2. No flow limiting right internal carotid artery stenosis detected. Note: 'Any reported ICA stenoses indirectly reference the distal internal carotid diameter as the denominator for stenosis measurement, using consensus panel criteria.' SL: 06/20/2015 [facility] Chest 1view DX NAME: MARYAN MEZA : 1950 SEX: F Ordering Physician: Freda Baez 1view : Jun 20, 2015 12:26:00 PM. CLINICAL INDICATION: Focal neurological deficit. Weakness. Comparison Examination: None. FINDINGS: Degenerative changes seen about the thoracic spine. Heart size is normal. Mediastinal structures are unremarkable. Elevation of the right hemidiaphragm. No focal infiltrate identified within the lungs, no edema and no pneumothorax. SL: 06/20/2015 [facility] Brain Stroke wo contrast CT EXAM: CT HEAD WITHOUT CONTRAST. DATE: Jun 20, 2015 12:08:19 PM INDICATION: Altered level of consciousness. Left arm weakness. Slurred speech. Left facial droop. TECHNIQUE: Noncontrast axial imaging was obtained from the vertex to the skull base. Axial images were reconstructed using a bone algorithm. COMPARISON: None. FINDINGS: No acute intracranial hemorrhage or extraaxial collection is identified. There is hypodensity involving the right lentiform nucleus and caudate. Mild effacement of the right frontal horn is seen. No ventricular dilatation is identified. Basilar cisterns are patent. No herniation is identified. Included paranasal sinuses are clear. No mastoid effusion is identified. No skull fracture is seen. IMPRESSION: Acute infarct in the right basal ganglia. Dr. Barr was notified of this finding via phone on 06/20/2015 at 12:35 p.m. SL: 12 06/20/2015 [facility] Consultation Notes No Data Provided for This Section Discharge Summaries No Data Provided for This Section History and Physicals No Data Provided for This Section Vital Signs Vital Sign Value Date Comments Source Heart Rate 98 05/12/2016 [facility] Respitory Rate 20 05/12/2016 [facility] Systolic (mm Hg) 129 05/12/2016 [facility] Diastolic (mm Hg) 80 05/12/2016 [facility] Heart Rate 89 02/16/2016 [facility] Respitory Rate 16 02/16/2016 [facility] Systolic (mm Hg) 106 02/16/2016 [facility] Diastolic (mm Hg) 61 02/16/2016 [facility] Weight 72.273 02/02/2016 [facility] Heart Rate 92 02/02/2016 [facility] Respitory Rate 18 02/02/2016 [facility] Systolic (mm Hg) 120 02/02/2016 [facility] Diastolic (mm Hg) 73 02/02/2016 [facility] Systolic (mm Hg) 145 11/20/2015 [facility] Diastolic (mm Hg) 77 11/20/2015 [facility] Heart Rate 98 11/20/2015 [facility] Heart Rate 96 11/18/2015 [facility] Systolic (mm Hg) 143 11/18/2015 [facility] Diastolic (mm Hg) 78 11/18/2015 [facility] Systolic (mm Hg) 140 11/17/2015 [facility] Diastolic (mm Hg) 71 11/17/2015 [facility] Respitory Rate 16 11/17/2015 [facility] Heart Rate 78 11/17/2015 [facility] Systolic (mm Hg) 138 11/02/2015 [facility] Diastolic (mm Hg) 73 11/02/2015 [facility] Heart Rate 99 11/02/2015 [facility] BMI Calculated 26.27 09/07/2015 [facility] Height 160.02 cm 09/07/2015 [facility] Respitory Rate 20 09/07/2015 [facility] Weight 67.273 09/07/2015 [facility] Heart Rate 85 09/07/2015 [facility] Systolic (mm Hg) 133 09/07/2015 [facility] Diastolic (mm Hg) 69 09/07/2015 [facility] Systolic (mm Hg) 137 08/28/2015 [facility] Diastolic (mm Hg) 77 08/28/2015 [facility] Height 160.02 cm 08/20/2015 [facility] Height 160.02 cm 08/17/2015 [facility] Height 160.02 cm 08/10/2015 [facility] Systolic (mm Hg) 124 08/04/2015 [facility] Diastolic (mm Hg) 83 08/04/2015 [facility] Heart Rate 63 08/04/2015 [facility] Systolic (mm Hg) 135 07/27/2015 [facility] Diastolic (mm Hg) 67 07/27/2015 [facility] Heart Rate 67 07/27/2015 [facility] Systolic (mm Hg) 131 07/21/2015 [facility] Resp[facility] Rate 16 07/21/2015 [facility] Heart Rate 68 07/21/2015 [facility] Diastolic (mm Hg) 72 07/21/2015 [facility] Temperature Oral (F) 98.9 F 07/21/2015 [facility] Systolic (mm Hg) 129 07/21/2015 [facility] Diastolic (mm Hg) 77 07/21/2015 [facility] Temperature Oral (F) 98.3 F 07/21/2015 [facility] Respitory Rate 16 07/21/2015 [facility] Heart Rate 70 07/21/2015 [facility] Diastolic (mm Hg) 71 07/20/2015 [facility] Respitory Rate 16 07/20/2015 [facility] Systolic (mm Hg) 129 07/20/2015 [facility] Temperature Oral (F) 97.9 F 07/20/2015 [facility] Heart Rate 73 07/20/2015 [facility] BMI Calculated 27.89 06/30/2015 [facility] Height 160 cm 06/30/2015 [facility] Weight 71.4 06/27/2015 [facility] Height 160.02 cm 06/25/2015 [facility] Weight 70.455 06/25/2015 [facility] BMI Calculated 27.51 06/25/2015 [facility] Heart Rate 76 06/25/2015 [facility] Temperature Oral (F) 97.6 F 06/25/2015 [facility] Systolic (mm Hg) 147 06/25/2015 [facility] Diastolic (mm Hg) 84 06/25/2015 [facility] Respitory Rate 16 06/25/2015 [facility] Systolic (mm Hg) 155 06/25/2015 [facility] Diastolic (mm Hg) 75 06/25/2015 [facility] Respitory Rate 16 06/25/2015 [facility] Heart Rate 73 06/25/2015 [facility] Temperature Oral (F) 98.8 F 06/25/2015 [facility] Temperature Oral (F) 98.3 F 06/25/2015 [facility] Respitory Rate 16 06/25/2015 [facility] Systolic (mm Hg) 158 06/25/2015 [facility] Diastolic (mm Hg) 72 06/25/2015 [facility] Heart Rate 75 06/25/2015 [facility] BMI Calculated 27.52 06/23/2015 [facility] Weight 70.455 06/23/2015 [facility] Height 160 cm 06/23/2015 [facility] Weight 70.455 06/20/2015 [facility] BMI Calculated 27.51 06/20/2015 [facility] Height 160.02 cm 06/20/2015 [facility] Weight 100 06/20/2015 [facility] BMI Calculated 39.05 06/20/2015 [facility] Height 160.02 cm 06/20/2015 [facility] Encounters Location Location Details Encounter Type Encounter Number Reason For Visit Attending Provider ADM Date DC Date Status Source [facility] Inpatient [id number] Dayana Ragland 06/20/2015 06/25/2015 [facility] [id number] Brett Deras Jr 06/25/2015 07/21/2015 [facility] Challenge Program [id number] Brett Deras Jr 07/27/2015 08/26/2015 [facility] Challenge Program [id number] Brett Deras Jr 08/26/2015 09/25/2015 [facility] Out[facility] [id number] Cookie Magat 09/07/2015 09/08/2015 [facility] Challenge Program [id number] Cookie Magat 09/25/2015 10/25/2015 [facility] Challenge Program [id number] Cookie Magat 10/28/2015 11/27/2015 [facility] OP Recurring [id number] Cookie Magat 11/02/2015 12/02/2015 [facility] Outpatient [id number] Cookie Magat 11/17/2015 11/18/2015 [facility] Challenge Program [id number] Cookie Magat 11/27/2015 12/27/2015 [facility] Challenge Program [id number] Cookie Magat 12/29/2015 01/28/2016 [facility] Outpatient [id number] Cookie Magat 02/02/2016 02/03/2016 [facility] Outpatient [id number] Cookie Magat 02/16/2016 02/17/2016 [facility] Outpatient [id number] Cookie Magat 05/12/2016 05/13/2016 [facility] [place] [facility] [id number] Yajaira Palvadi 03/07/2017 03/08/2017 [facility] [place] [facility] [id number] Yajaira Palvadi 06/27/2017 06/28/2017 [facility] Outpatient [id number] Tiago Dong 04/25/2018 04/26/2018 [facility] [place] [facility] [id number] Redd Saenz 06/26/2018 06/27/2018 [facility] [place] Procedures No Data Provided for This Section Assessment and Plan Assessment and Plan Date Source Extracted from:Title: Clinical Document Author: Brett Castro MD Date: [...] Mood good. PHYSICAL EXAMINATION: Vitals and Temp: Vitals Tmp(F) Pulse BP RR SpO2 FIO2 07/20 08:20 98.1 76 156/74 16 --- --- 07/19 19:29 98.0 80 136/59 16 94 --- 07/19 15:53 98.3 73 118/68 16 96 --- 07/19 08:05 98.1 67 119/62 16 97 --- 07/18 20:21 98.5 74 121/72 16 95 --- 24 Hr Tmax: 98.3F (36.83c) at 07/19 15:53 Vital Signs are the last 5 in the [...] intact. Labs (Last four charted values) WBC 5.6 (JUL 14) 5.6 (JUN 30) 6.5 (JUN 18) Hgb 13.0 (JUL 14) 12.6 (JUN 30) 12.8 (JUN 18) Hct 39.0 (JUL 14) 37.5 (JUN 30) 38.0 (JUN 18) Plt 231 (JUL 14) 242 (JUN 30) 246 (SEP 18) Na 140 (JUL 06) 139 (JUN 30) 138 (SEP 18) K 4.4 (JUL 14) 4.0 (JUN 30) 4.0 (JUN 18) CO2 26 (JUL 14) 27 (JUN 30) 25 (JUN 18) Cl 108 (JUL 14) 107 (JUN 30) 105 (SEP 18) Cr 0.8 (JUL 06) 0.7 (JUN 22) 0.8 (SEP 18) BUN 18 (JUL 14) 16 (JUN 30) 14 (SEP 18) Glucose Random H 105 (JUL 06) H 107 (JUN 22) H 119 (JUN 18) Mg 2.1 (JUN 18) Phos 3.7 (JUN 18) Ca 9.2 (JUL 14) 8.5 (JUN 30) 8.5 (JUN 18) PT 13.8 (JUN 18) INR 1.03 (JUN 18) PTT 30.3 (JUN 18) IMAGING DIAGNOSTIC STUDIES: No new imaging. [...] commode, Transfer bench. 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 ELOS: 07/21. Scheduled appt With Dr. Rockwell 08/20 at 0900 07/21/2015 Yann Extracted from:Title: Neurology Progress Note Author: Aren Gil MD Date: 06/25/15 Impression and Plan 1. Acute right basal ganglia infarct 2. Right ICA occlusion 3. Hyperlipidemia. 4. Headaches. 5. Tobacco abuse. 6. Coronary artery disease. 7. Dysphagia. 8. Nondominant left hemiparesis - UE>LE 9. Depression 10.Intracranial atherosclerosis 11.Prediabetes (HgbA1c - 5.9) 12.Spasticity PLAN: Monitor this patient on telemetry pt received CTA head and Neck - as she could not get MRI and MRA of head and neck- due to persistent movements despite sedation. aspirin. low-dose statin. Tylenol suppository as needed for headaches. Speech therapy. Physical therapy, occupational therapy DVT prophylaxis. Permissive hypertension. Reviewed lipid profile. The patient was counseled regarding healthy lifestyle, importance of rehabilitation. 06/22 - Spent >30minutes with pt and her daughter - explaining workup results and interpretation - showed images MBS, Rehab consult. d/w pt, daughter, Dr Hernandez 06/23 - switch to PO aspirin. permissive HTN. restart crestor - d/c lipitor. restart Fluoxetine, Synthroid. will start Baclofen 10mg qhs for spasticity. PT/OT. discussed at length with pt and her daughter. aspiration precautions. 06/24 - discussed regaridng stretching exercises for leg spasticity, UE spasticity is better, c/w Baclofen, awaiting insurance approval for rehab transfer. supportive care. d/w the pt and daughter. 06/25 - c/w current treatment. PT/OT. rehab transfer per primary team. d/w daughter. 06/25/2015 [facility] Plan of Care No Data Provided for This Section Social History Social History Date Source Social History TypeResponse Smoking Status Former smoker; Type: Cigarettes; Previous treatment: None; Ready to change: Yes; Concerns about tobacco use in household: No; Exposure to Tobacco Smoke None; Cigarette Smoking Last 365 Days Yes; Reg Smoking Cessation Counseling Yes entered on: 05/12/16 05/12/2016 [facility] Social History TypeResponse Smoking Status Former smoker; Type: Cigarettes; Previous treatment: None; Ready to change: Yes; Concerns about tobacco use in household: No; Exposure to Tobacco Smoke None; Cigarette Smoking Last 365 Days Yes; Reg Smoking Cessation Counseling Yes 05/12/2016 [facility] Social History TypeResponse Smoking Status Former smoker; Type: Cigarettes; Previous treatment: None; Ready to change: Yes; Concerns about tobacco use in household: No; Exposure to Tobacco Smoke None; Cigarette Smoking Last 365 Days Yes; Reg Smoking Cessation Counseling Yes 05/12/2016 [facility] Social History TypeResponse Smoking Status Former smoker; Type: Cigarettes; Previous treatment: None; Ready to change: Yes; Concerns about tobacco use in household: No; Exposure to Tobacco Smoke None; Cigarette Smoking Last 365 Days Yes; Reg Smoking Cessation Counseling Yes entered on: 05/12/16 05/12/2016 [facility] [place] Family History No Data Provided for This Section Advance Directives No Data Provided for This Section Functional Status No Data Provided for This Section
--- OUTSIDE RECORDS SUMMARY | 2019-07-04 07:12 | XMS REPORT | Summary of Care ---
Author Author [facility] Organization [facility] Address Unknown Phone Unavailable Encounter CLARITZA Etienne(GARRET) [id number] Date(s): 06/20/15 - 06/25/15 [facility] [address] [place] [address]- [phone] Discharge Disposition: DC/DISC TO REHAB Attending Physician: Dayana Ragland MD Admitting Physician: Dayana Ragland MD Vital Signs 1 2 3 Most recent to oldest [Reference Range]: 160 cm (06/23/15 7:48 AM) 160.02 cm (06/20/15 3:30 PM) 160.02 cm (06/20/15 11:58 AM) Height 1 2 3 Most recent to oldest [Reference Range]: 97.6 DegF (06/25/15 12:00 PM) 98.8 DegF (06/25/15 8:00 AM) 98.3 DegF (06/25/15 4:00 AM) Temperature Oral [96.4-99.1 DegF] 1 2 3 Most recent to oldest [Reference Range]: 147/84 mmHg *HI* (06/25/15 12:00 PM) 155/75 mmHg *HI* (06/25/15 8:00 AM) 158/72 mmHg *HI* (06/25/15 4:00 AM) Blood Pressure [90-140/60-90 mmHg] 1 2 3 Most recent to oldest [Reference Range]: 16 BRMIN (06/25/15 12:00 PM) 16 BRMIN (06/25/15 8:00 AM) 16 BRMIN (06/25/15 4:00 AM) Respiratory Rate [14-20 BRMIN] 1 2 3 Most recent to oldest [Reference Range]: 76 bpm (06/25/15 12:00 PM) 73 bpm (06/25/15 8:00 AM) 75 bpm (06/25/15 4:00 AM) Peripheral Pulse Rate [60-100 bpm] 1 2 3 Most recent to oldest [Reference Range]: 70.455 kg (06/23/15 7:48 AM) 70.455 kg (06/20/15 3:30 PM) 100 kg (06/20/15 11:58 AM) Weight 1 2 3 Most recent to oldest [Reference Range]: 27.52 m2 (06/23/15 7:48 AM) 27.51 m2 (06/20/15 3:30 PM) 39.05 m2 (06/20/15 11:58 AM) Body Mass Index Problem List Condition Effective Dates Status Health Status Informant CVA (cerebral Active infarction)(Confirme d) Hemiplegia of Active nondominant side following CVA (cerebrovascular accident)(Confirmed) Hyperlipidemia(Confi Active rmed) Hypertension(Confirm Active ed) Cognitive deficit Active S/P CVA (cerebrovascular accident)(Confirmed) Hemineglect(Confirme Active d) Oropharyngeal Active dysphagia(Confirmed) Thyroid Active disorder(Confirmed) Tobacco Active abuse(Confirmed) Allergies, Adverse Reactions, Alerts Substance Reaction Severity Status NKDA Active Medications acetaminophen 650 mg, 1 supp, Route: MI, Drug form: SUPP, ONCE, Dosing Weight 70.455, kg, Star t date: 06/21/15 8:59:00, Stop date: 06/21/15 8:59:00 Notes: Max pshatptlmkaaa=8196 mg/day (4 gm/day). (Same as: Tylenol) Start Date: 06/21/15 Stop Date: 06/21/15 Status: Completed Ambien 5 mg, 1 tab, Route: PO, Drug form: TAB, Bedtime, Dosing Weight 70.455, kg, PRN I nsomnia, Start date: 06/22/15 18:37:00, Duration: 30 day, Stop date: 07/22/15 18 :36:00 Notes: (Same As: Ambien) Start Date: 06/22/15 Stop Date: 06/25/15 Status: Discontinued aspirin 300 mg rectal suppository 300 mg, 1 supp, Route: MI, Drug form: SUPP, Daily, Dosing Weight 70.455, kg, Sta rt date: 06/20/15 17:00:00, Duration: 30 day, Stop date: 07/20/15 9:00:00 Notes: Refrigerate. Start Date: 06/20/15 Stop Date: 06/23/15 Status: Discontinued aspirin 325 mg tablet, enteric coated 325 mg, 1 tab, Route: PO, Drug form: ECTAB, Daily, Dosing Weight 100, kg, Start date: 06/20/15 15:17:00, Duration: 30 day, Stop date: 07/20/15 9:00:00 Notes: (Do Not Crush) Do not crush or chew. Start Date: 06/20/15 Stop Date: 06/20/15 Status: Discontinued aspirin 81 mg tablet, enteric coated 81 mg, 1 tab, Route: PO, Drug form: ECTAB, Daily, Dosing Weight 70.455, kg, Star t date: 06/24/15 9:00:00, Duration: 30 day, Stop date: 07/23/15 6:30:00 Notes: Do not crush or chew.(Same As: Ecotrin) Start Date: 06/24/15 Stop Date: 06/25/15 Status: Discontinued Ativan 2 mg, 1 mL, Route: IVP, Drug form: INJ, ONCE, Dosing Weight 70.455, kg, Start da te: 06/21/15 9:24:00, Stop date: 06/21/15 9:24:00 Notes: (Same as: Ativan) Start Date: 06/21/15 Stop Date: 06/21/15 Status: Completed Ativan 1 mg, 0.5 mL, Route: IVP, Drug form: INJ, ONCE, Dosing Weight 70.455, kg, PRN An xiety, Start date: 06/20/15 20:37:00 Notes: (Same as: Ativan) Start Date: 06/20/15 Stop Date: 06/20/15 Status: Completed atropine 0.5 mg, 5 mL, Route: IVP, Drug form: INJ, ONCE, Dosing Weight 70.455, kg, PRN Ot her -See Comment, Start date: 06/20/15 16:32:00, for symptomatic bradycardia Start Date: 06/20/15 Stop Date: 06/25/15 Status: Discontinued baclofen 10 mg, 1 tab, Route: PO, Drug form: TAB, Bedtime, Dosing Weight 70.455, kg, Star t date: 06/23/15 21:00:00, Duration: 30 day, Stop date: 07/22/15 21:00:00 Notes: (Same As: Lioresal) Start Date: 06/23/15 Stop Date: 06/25/15 Status: Discontinued Claritin 10 mg, 1 tab, Route: PO, Drug form: TAB, Daily, Start date: 06/23/15 12:30:00, D uration: 30 day, Stop date: 07/23/15 6:30:00 Notes: 1 hr before meals (Same as: Claritin) Start Date: 06/23/15 Stop Date: 06/25/15 Status: Discontinued Claritin-D oral tablet, extended release 1 tab, Route: PO, Dosing Weight 70.455, kg, Daily, Start date: 06/24/15 9:00:00, Duration: 30 day, Stop date: 07/23/15 9:00:00 Start Date: 06/24/15 Stop Date: 06/23/15 Status: Deleted Crestor 20 mg oral tablet 20 mg=1 tab, PO, Daily, # 30 tab, 0 Refill(s) Start Date: 06/21/15 Stop Date: 07/21/15 Status: Suspended Dextrose 5% with 0.45% NaCl IV 1,000 mL 1,000 mL, Rate: 60 ml/hr, Infuse over: 16.7 hr, Route: IV, Dosing Weight 70.455 kg, Total Volume: 1,000, Start date: 06/20/15 16:29:00, Duration: 30 day, Stop d ate: 07/20/15 16:28:00 Start Date: 06/20/15 Stop Date: 06/23/15 Status: Discontinued docusate 100 mg, 1 cap, Route: PO, Drug form: CAP, BID, Dosing Weight 70.455, kg, Start d ate: 06/23/15 9:00:00, Duration: 30 day, Stop date: 07/22/15 17:00:00 Notes: (Same as: Colace) (Do Not Crush) Start Date: 06/23/15 Stop Date: 06/25/15 Status: Discontinued FLUoxetine 40 mg, 2 cap, Route: PO, Drug form: CAP, Daily, Dosing Weight 70.455, kg, Start date: 06/24/15 9:00:00, Duration: 30 day, Stop date: 07/23/15 6:30:00 Notes: (Same as: Prozac Sarafem) Start Date: 06/24/15 Stop Date: 06/25/15 Status: Discontinued FLUoxetine 40 mg oral capsule 40 mg=1 cap, PO, Daily, # 30 cap, 0 Refill(s) Start Date: 06/20/15 Status: Suspended levothyroxine 125 microgram, 1 tab, Route: PO, Drug form: TAB, Daily, Dosing Weight 70.455, kg , Start date: 06/24/15 9:00:00, Duration: 30 day, Stop date: 07/23/15 6:30:00 Notes: Take 1 hour before or 2 hours after meal; Enteral feeds may interefere wi th the absorption of this medication. (Same as:Levothroid) Start Date: 06/24/15 Stop Date: 06/25/15 Status: Discontinued levothyroxine 125 mcg (0.125 mg) oral tablet 125 microgram=1 tab, PO, Daily, # 30 tab, 0 Refill(s) Start Date: 06/20/15 Status: Suspended Lipitor 10 mg, 1 tab, Route: PO, Drug form: TAB, Bedtime, Dosing Weight 70.455, kg, Star t date: 06/21/15 21:00:00, Duration: 30 day, Stop date: 07/20/15 21:00:00 Notes: (Same As: Lipitor) Start Date: 06/21/15 Stop Date: 06/23/15 Status: Discontinued lisinopril 10 mg oral tablet 10 mg=1 tab, PO, Daily, # 30 tab, 0 Refill(s) Start Date: 06/20/15 Status: Suspended Lovenox 30 mg, 0.3 mL, Route: SUB-Q, Drug form: INJ, [id number], Dosing Weight 70.455, kg, For CrCl <30mL/min, Start date: 06/21/15 11:00:00, Duration: 30 day, Stop date: 07/20/15 11:00:00 Notes: (Same as: Lovenox) Start Date: 06/21/15 Stop Date: 06/25/15 Status: Discontinued morphine Sulfate 2 mg, 1 mL, Route: IVP, Drug form: INJ, Q4H, Dosing Weight 70.455, kg, PRN Pain Score 7-10, Start date: 06/21/15 14:27:00, Duration: 30 day, Stop date: 07/21/15 14:26:00 Notes: (Same as:MORPhine Sulfate) Start Date: 06/21/15 Stop Date: 06/22/15 Status: Discontinued nicotine 7 mg, 1 patch, Route: TOP, Drug form: ERFILM, Daily, Dosing Weight 70.455, kg, S tart date: 06/21/15 16:00:00, Duration: 30 day, Stop date: 07/21/15 9:00:00 Notes: (Same as: Habitrol)"Remove old patch before application of new patch" Start Date: 06/21/15 Stop Date: 06/25/15 Status: Discontinued nitroglycerin 0.4 mg sublingual tablet 0.4 mg, 1 tab, Route: SL, Drug form: TAB, Q5Min, Dosing Weight 70.455, kg, PRN C hest Pain, Start date: 06/20/15 16:32:00, Duration: 30 day, Stop date: 07/20/15 16:31:00 Notes: (Same as:Nitroquick, Nitrostat)"Do Not Crush" Sublingual tablet Start Date: 06/20/15 Stop Date: 06/25/15 Status: Discontinued rosuvastatin 30 mg, 3 tab, Route: PO, Drug form: TAB, Bedtime, Dosing Weight 70.455, kg, Star t date: 06/23/15 21:00:00, Duration: 30 day, Stop date: 07/22/15 21:00:00 Notes: (Same As: Crestor) Start Date: 06/23/15 Stop Date: 06/25/15 Status: Discontinued Saline Flush 0.9% 10 ml, Route: IVP, Drug Form: INJ, Dosing Weight 100, kg, PRN, PRN Line Flush, S tart date: 06/20/15 15:05:00, Duration: 30 day, Stop date: 07/20/15 15:04:00 Notes: (Same as: BD Posiflush) Start Date: 06/20/15 Stop Date: 06/25/15 Status: Discontinued Saline Flush 0.9% 10 ml, Route: IVP, Drug Form: INJ, Dosing Weight 100, kg, Q12H, Start date: 06/09 11/23 21:00:00, Duration: 30 day, Stop date: 07/20/15 9:00:00 Notes: (Same as: BD Posiflush) Start Date: 06/20/15 Stop Date: 06/25/15 Status: Discontinued Saline Flush 0.9% 10 ml, Route: IVP, Drug Form: INJ, Dosing Weight 100, kg, PRN, PRN Line Flush, S tart date: 06/20/15 15:05:00, Duration: 30 day, Stop date: 07/20/15 15:04:00 Notes: (Same as: BD Posiflush) Start Date: 06/20/15 Stop Date: 06/25/15 Status: Discontinued Saline Flush 0.9% 10 mL, Route: IVP, Drug Form: INJ, Dosing Weight 100, kg, PRN, PRN Line Flush, S tart date: 06/20/15 12:13:00, Duration: 30 day, Stop date: 07/20/15 12:12:00 Notes: (Same as: BD Posiflush) Start Date: 06/20/15 Stop Date: 06/25/15 Status: Discontinued Sudafed 60 mg, 1 tab, Route: PO, Drug form: TAB, Q6H, Start date: 06/23/15 12:00:00, Dur ation: 30 day, Stop date: 07/23/15 6:00:00 Notes: (Same as: Sudafed) Start Date: 06/23/15 Stop Date: 06/23/15 Status: Deleted Tylenol 650 mg, 2 tab, Route: PO, Drug form: TAB, Q6H, Dosing Weight 70.455, kg, PRN Abundio n Score 6-10, Start date: 06/22/15 17:58:00, Duration: 30 day, Stop date: 17:57:00 Notes: Do not exceed 4 gm/day. (Same as: Tylenol) Start Date: 06/22/15 Stop Date: 06/25/15 Status: Discontinued Vitamin C 100 mg oral tablet 100 mg=1 tab, PO, Daily, # 30 tab, 0 Refill(s) Start Date: 06/20/15 Status: Suspended Results ELECTROLYTES 1 2 3 Most recent to oldest [Reference Range]: 138 mEq/L (06/23/15 3:51 AM) 139 mEq/L (06/22/15 12:26 PM) 141 mEq/L (06/21/15 10:24 AM) Sodium Lvl [135-145 mEq/L] 3.5 mEq/L (06/23/15 3:51 AM) 3.7 mEq/L (06/22/15 12:26 PM) 4.0 mEq/L (06/21/15 10:24 AM) Potassium Lvl [3.5-5.1 mEq/L] 108 mEq/L (06/23/15 3:51 AM) 108 mEq/L (06/22/15 12:26 PM) 110 mEq/L *HI* (06/21/15 10:24 AM) Chloride Lvl [95-109 mEq/L] 24 mEq/L (06/23/15 3:51 AM) 25 mEq/L (06/22/15 12:26 PM) 25 mEq/L (06/21/15 10:24 AM) CO2 [24-32 mEq/L] 9.5 mEq/L *LOW* (06/23/15 3:51 AM) 9.7 mEq/L *LOW* (06/22/15 12:26 PM) 10.0 mEq/L (06/21/15 10:24 AM) AGAP [10.0-20.0 mEq/L] CHEM PANEL 1 2 3 Most recent to oldest [Reference Range]: 0.7 mg/dL (06/23/15 3:51 AM) 0.7 mg/dL (06/22/15 12:26 PM) 0.8 mg/dL (06/21/15 10:24 AM) Creatinine Lvl [0.5-1.4 mg/dL] 90 mL/min/1.73m2 1 *NA* (06/23/15 3:51 AM) 90 mL/min/1.73m2 2 *NA* (06/22/15 12:26 PM) 77 mL/min/1.73m2 3 *NA* (06/21/15 10:24 AM) eGFR 10 mg/dL (06/23/15 3:51 AM) 17 mg/dL (06/22/15 12:26 PM) 19 mg/dL (06/21/15 10:24 AM) BUN [7-22 mg/dL] 30 *HI* (06/20/15 12:31 PM) B/C Ratio [6-25] 123 mg/dL *HI* (06/23/15 3:51 AM) 119 mg/dL *HI* (06/22/15 12:26 PM) 121 mg/dL *HI* (06/21/15 10:24 AM) Glucose Lvl [70-99 mg/dL] 7.5 g/dL (06/20/15 12:31 PM) Total Protein [6.4-8.4 g/dL] 3.9 g/dL (06/20/15 12:31 PM) Albumin Lvl [3.5-5.0 g/dL] 3.6 g/dL (06/20/15 12:31 PM) Globulin [2.0-4.0 g/dL] 1.1 (06/20/15 12:31 PM) A/G Ratio [0.7-1.6] 8.8 mg/dL (06/23/15 3:51 AM) 9.2 mg/dL (06/22/15 12:26 PM) 8.6 mg/dL (06/21/15 10:24 AM) Calcium Lvl [8.5-10.5 mg/dL] 55 unit/L (06/20/15 12:31 PM) ALT [0-65 unit/L] 31 unit/L (06/20/15 12:31 PM) AST [0-37 unit/L] 66 unit/L (06/20/15 12:31 PM) Alk Phos [39-136 unit/L] 0.3 mg/dL (06/20/15 12:31 PM) Bili Total [0.2-1.3 mg/dL] 1Result Comment: The eGFR is calculated using [...] be mul tiplied by the estimated BMI. CARDIAC ENZYMES 1 2 3 Most recent to oldest [Reference Range]: 516 unit/L *HI* (06/23/15 3:51 AM) 672 unit/L *HI* (06/22/15 12:26 PM) 1397 unit/L *HI* (06/21/15 10:24 AM) Total CK [12-191 unit/L] 9.2 ng/mL *HI* (06/20/15 12:31 PM) CK MB [0.5-3.6 ng/mL] 2.4 (06/20/15 12:31 PM) CK MB Index [0.0-2.5] <0.02 ng/mL (06/20/15 12:31 PM) Troponin-I [0.00-0.40 ng/mL] LIPIDS 1 2 3 Most recent to oldest [Reference Range]: 2.29 *LOW* (06/20/15 4:19 PM) CHD Risk [3.90-5.80] 197 mg/dL (06/20/15 4:19 PM) Chol [<=199 mg/dL] 79 mg/dL (06/20/15 4:19 PM) Trig [<=149 mg/dL] 86 mg/dL (06/20/15 4:19 PM) HDL [>=61 mg/dL] 95 mg/dL (06/20/15 4:19 PM) LDL (Calculated) [<=99 mg/dL] 16 *NA* (06/20/15 4:19 PM) VLDL SPECIAL CHEMISTRY 1 2 3 Most recent to oldest [Reference Range]: 5.9 % *HI* (06/21/15 10:24 AM) Hgb A1C [<=5.6 %] URINE AND STOOL 1 2 3 Most recent to oldest [Reference Range]: Clear (06/20/15 1:24 PM) UA Turbidity [Clear] Yellow *NA* (06/20/15 1:24 PM) UA Color [Yellow] 5.0 (06/20/15 1:24 PM) UA pH [5.0-8.0] 1.015 (06/20/15 1:24 PM) UA Spec Grav [<=1.030] Negative mg/dL *NA* (06/20/15 1:24 PM) UA Glucose [Negative mg/dL] Negative (06/20/15 1:24 PM) UA Blood [Negative] Negative mg/dL *NA* (06/20/15 1:24 PM) UA Ketones [Negative mg/dL] Negative mg/dL (06/20/15 1:24 PM) UA Protein [Negative mg/dL] <=1.0 mg/dL *NA* (06/20/15 1:24 PM) UA Urobilinogen [0.1-1.0 mg/dL] Negative *NA* (06/20/15 1:24 PM) UA Bili [Negative] Negative (06/20/15 1:24 PM) UA Leuk Est [Negative] Negative (06/20/15 1:24 PM) UA Nitrite [Negative] 3 /HPF (06/20/15 1:24 PM) UA WBC [0-5 /HPF] 4 /HPF *HI* (06/20/15 1:24 PM) UA RBC [0-2 /HPF] Occasional /HPF *NA* (06/20/15 1:24 PM) UA Bacteria [None Seen /HPF] Occasional /LPF *NA* (06/20/15 1:24 PM) UA Sq Epi [Few /LPF] Many /LPF *ABN* (06/20/15 1:24 PM) UA Mucus [None Seen /LPF] HEMATOLOGY 1 2 3 Most recent to oldest [Reference Range]: 6.3 K/CMM (06/23/15 3:51 AM) 10.7 K/CMM *HI* (06/20/15 12:31 PM) WBC [3.7-10.4 K/CMM] 3.79 M/CMM *LOW* (06/23/15 3:51 AM) 4.32 M/CMM (06/20/15 12:31 PM) RBC [4.20-5.40 M/CMM] 12.3 g/dL (06/23/15 3:51 AM) 13.8 g/dL (06/20/15 12:31 PM) Hgb [12.0-16.0 g/dL] 35.9 % *LOW* (06/23/15 3:51 AM) 41.5 % (06/20/15 12:31 PM) Hct [36.0-48.0 %] 94.7 fL (06/23/15 3:51 AM) 96.1 fL (06/20/15 12:31 PM) MCV [80.0-98.0 fL] 32.4 pg *HI* (06/23/15 3:51 AM) 32.1 pg *HI* (06/20/15 12:31 PM) MCH [27.0-31.0 pg] 34.2 g/dL (06/23/15 3:51 AM) 33.4 g/dL (06/20/15 12:31 PM) MCHC [32.0-36.0 g/dL] 12.4 % (06/23/15 3:51 AM) 12.5 % (06/20/15 12:31 PM) RDW [11.5-14.5 %] 234 K/CMM (06/23/15 3:51 AM) 265 K/CMM (06/20/15 12:31 PM) Platelet [133-450 K/CMM] 8.6 fL (06/23/15 3:51 AM) 8.7 fL (06/20/15 12:31 PM) MPV [7.4-10.4 fL] 55.6 % (06/23/15 3:51 AM) 87.2 % *HI* (06/20/15 12:31 PM) Segs [45.0-75.0 %] 30.3 % (06/23/15 3:51 AM) 7.0 % *LOW* (06/20/15 12:31 PM) Lymphocytes [20.0-40.0 %] 11.2 % (06/23/15 3:51 AM) 5.5 % (06/20/15 12:31 PM) Monocytes [2.0-12.0 %] 2.5 % (06/23/15 3:51 AM) 0.1 % (06/20/15 12:31 PM) Eosinophils [0.0-4.0 %] 0.4 % (06/23/15 3:51 AM) 0.2 % (06/20/15 12:31 PM) Basophils [0.0-1.0 %] 3.5 K/CMM (06/23/15 3:51 AM) 9.3 K/CMM *HI* (06/20/15 12:31 PM) Segs-Bands # [1.5-8.1 K/CMM] 1.9 K/CMM (06/23/15 3:51 AM) 0.7 K/CMM *LOW* (06/20/15 12:31 PM) Lymphocytes # [1.0-5.5 K/CMM] 0.7 K/CMM (06/23/15 3:51 AM) 0.6 K/CMM (06/20/15 12:31 PM) Monocytes # [0.0-0.8 K/CMM] 0.2 K/CMM (06/23/15 3:51 AM) Eosinophils # [0.0-0.5 K/CMM] 13.0 seconds (06/20/15 12:31 PM) PT [12.0-14.7 seconds] 0.95 (06/20/15 12:31 PM) INR [0.85-1.17] 30.5 seconds (06/20/15 12:31 PM) PTT [22.9-35.8 seconds] Immunizations No data available [...] Yes Assessment and Plan Extracted from: Title: Neurology Progress Note Author: Aren Gil Date: 06/25/15 Diaz JUAN Impression and Plan 1. Acute right basal [...]
--- OUTSIDE RECORDS SUMMARY | 2019-07-04 07:12 | XMS REPORT | Summary of Care ---
Author Author [facility] Address Unknown Phone Unavailable Encounter CLARITZA Etienne(GARRET) [id number] Date(s): 09/07/15 - 09/07/15 [place] [id number] [phone] Discharge Disposition: Home Attending Physician: Cookie Rockwell MD Referring Physician: Cookie Rockwell MD Vital Signs Most recent to 1 oldest [Reference Range]: Height 160.02 cm (09/07/15 10:14 AM) Blood Pressure 133/69 mmHg [90-140/60-90 mmHg] (09/07/15 10:14 AM) Respiratory Rate 20 BRMIN [14-20 BRMIN] (09/07/15 10:14 AM) Peripheral Pulse 85 bpm Rate [60-100 bpm] (09/07/15 10:14 AM) Weight 67.273 kg (09/07/15 10:14 AM) Body Mass Index 26.27 m2 (09/07/15 10:14 AM) Problem List Condition Effective Dates Status Health Status Informant CVA (cerebral Active infarction)(Confirme d) Stroke(Confirmed) Active Hemiplegia of Active nondominant side following CVA (cerebrovascular accident)(Confirmed) Hyperlipidemia(Confi Active rmed) Hypertension(Confirm Active ed) Cognitive deficit Active S/P CVA (cerebrovascular accident)(Confirmed) Hemineglect(Confirme Active d) Oropharyngeal Active dysphagia(Confirmed) Spasticity(Confirmed Resolved ) Thyroid Active disorder(Confirmed) Tobacco Active abuse(Confirmed) Allergies, Adverse Reactions, Alerts Substance Reaction Severity Status NKDA Active sulfa drugs Active Medications baclofen 10 mg oral tablet 15 mg=1.5 tab, PO, QID, # 180 tab, 2 Refill(s), Pharmacy: [facility] [id number] Start Date: 09/07/15 Stop Date: 12/06/15 Status: Ordered Results No data available for this section [...]
--- OUTSIDE RECORDS SUMMARY | 2019-07-04 07:12 | XMS REPORT | Summary of Care ---
Author Author [facility] Address Unknown Phone Unavailable Encounter CLARITZA Etienne(GARRET) [id number] Date(s): 07/27/15 - 08/25/[address] Discharge Disposition: Home Attending Physician: Brett Castro MD Vital Signs 1 2 3 Most recent to oldest [Reference Range]: 160.02 cm (08/20/15 8:42 AM) 160.02 cm (08/17/15 12:33 PM) 160.02 cm (08/10/15 3:29 PM) Height 70.455 kg (08/20/15 8:42 AM) 70.455 kg (08/17/15 12:33 PM) 70.455 kg (08/10/15 3:29 PM) Current Weight 124/83 mmHg (08/04/15 10:08 AM) 135/67 mmHg (07/27/15 10:02 AM) Blood Pressure [90-140/60-90 mmHg] 63 bpm (08/04/15 10:08 AM) 67 bpm (07/27/15 10:02 AM) Peripheral Pulse Rate [60-100 bpm] Problem List Condition Effective Dates Status Health Status Informant CVA (cerebral Active infarction)(Confirme d) Hemiplegia of Active nondominant side following CVA (cerebrovascular accident)(Confirmed) Hyperlipidemia(Confi Active rmed) Hypertension(Confirm Active ed) Cognitive deficit Active S/P CVA (cerebrovascular accident)(Confirmed) Hemineglect(Confirme Active d) Oropharyngeal Active dysphagia(Confirmed) Thyroid Active disorder(Confirmed) Tobacco Active abuse(Confirmed) Allergies, Adverse Reactions, Alerts Substance Reaction Severity Status NKDA Active sulfa drugs Active Medications No data available [...]
--- OUTSIDE RECORDS SUMMARY | 2019-07-04 07:13 | XMS REPORT | Summary of Care ---
Author Author [facility] Address Unknown Phone Unavailable Encounter CLARITZA Etienne(GARRET) [id number] Date(s): 05/12/16 - 05/12/16 [place] [address] [place], [place] [address] [phone] Discharge Disposition: Home or Self Care Attending Physician: Cookie Rockwell MD Referring Physician: Cookie Rockwell MD Vital Signs Most recent to 1 oldest [Reference Range]: Blood Pressure 129/80 mmHg [90-140/60-90 mmHg] (05/12/16 2:23 PM) Respiratory Rate 20 BRMIN [14-20 BRMIN] (05/12/16 2:23 PM) Peripheral Pulse 98 bpm Rate [60-100 bpm] (05/12/16 2:23 PM) Problem List Condition Effective Dates Status [...] Alerts Substance Reaction Severity Status sulfa drugs Gentamicin Sulfate,0.1%,Topical,cream Active Medications ibuprofen 200 mg oral tablet 4 tabs, PO, Daily, PRN Pain, # 120 tab, 0 Refill(s) Start Date: 05/12/16 Status: Ordered Results No data available for [...]
--- OUTSIDE RECORDS SUMMARY | 2019-07-04 07:13 | XMS REPORT | Summary of Care ---
Author Author [facility] Address Unknown Phone Unavailable Encounter CLARITZA Etienne(GARRET) [id number] Date(s): 02/02/16 - 02/02/16 [place] [address] [place], [place] [id number] [place] [address] [phone] Discharge Disposition: Home Attending Physician: Cookie Rockwell MD Referring Physician: Cookie Rockwell MD Vital Signs Most recent to 1 oldest [Reference Range]: Blood Pressure 120/73 mmHg [90-140/60-90 mmHg] (02/02/16 10:15 AM) Respiratory Rate 18 BRMIN [14-20 BRMIN] (02/02/16 10:15 AM) Peripheral Pulse 92 bpm Rate [60-100 bpm] (02/02/16 10:15 AM) Weight 72.273 kg (02/02/16 10:15 AM) Problem List Condition Effective Dates Status [...] Status sulfa drugs Gentamicin Sulfate,0.1%,Topical,cream Active Medications No Known Medications Results No data available for this section [...]
--- OUTSIDE RECORDS SUMMARY | 2019-07-04 07:13 | XMS REPORT | Summary of Care ---
Author Author [facility] Address Unknown Phone Unavailable Encounter [facility] Sloane_deborah(FIN) [id number] Date(s): 06/27/17 - 06/27/17 [facility] [place] [id number] [place] [address], [address] [place] [address]- [phone] Discharge Disposition: Home or Self Care Attending Physician: Yajaira Turk MD Vital Signs No data available for [...] sulfa drugs Gentamicin Sulfate,0.1%,Topical,cream Active Medications No data available for this [...]
--- OUTSIDE RECORDS SUMMARY | 2019-07-04 07:13 | XMS REPORT | Summary of Care ---
Author Author [facility] Address Unknown Phone Unavailable Encounter CLARITZA Etienne(GARRET) [id number] Date(s): 11/17/15 - 11/17/15 [place] [id number] [place], [place] [id number] [place] [address] Discharge Disposition: Home Attending Physician: Cookie Rockwell MD Referring Physician: Cookie Rockwell MD Vital Signs Most recent to 1 oldest [Reference Range]: Blood Pressure 140/71 mmHg [90-140/60-90 mmHg] (11/17/15 11:43 AM) Respiratory Rate 16 BRMIN [14-20 BRMIN] (11/17/15 11:43 AM) Peripheral Pulse 78 bpm Rate [60-100 bpm] (11/17/15 11:43 AM) Problem List Condition Effective Dates Status [...] Severity Status sulfa drugs Active Medications No Known Medications Results No data available for this section Immunizations No data available for this section Procedures No data available for this section Social History Social History Type Response Smoking Status Previous treatment: None; Ready to change: Yes; Concerns about tobacco use in household: No; Exposure to Tobacco Smoke None; Cigarette Smoking Last 365 Days Yes; Reg Smoking Cessation Counseling Yes; Former smoker; Type: Cigarettes Assessment and Plan No data available for this section
--- OUTSIDE RECORDS SUMMARY | 2019-07-04 07:13 | XMS REPORT | Summary of Care ---
Author Author [facility] Address Unknown Phone Unavailable Encounter CLARITZA Etienne(GARRET) [id number] Date(s): 10/28/15 - 11/26/15 [place] [id number] Discharge Disposition: Home Attending Physician: Cookie Rockwell MD Vital Signs Most recent to 1 2 oldest [Reference Range]: Blood Pressure 145/77 mmHg 143/78 mmHg [90-140/60-90 mmHg] *HI* *HI* (11/20/15 12:02 PM) (11/18/15 4:02 PM) Peripheral Pulse 98 bpm 96 bpm Rate [60-100 bpm] (11/20/15 12:02 PM) (11/18/15 4:02 PM) Problem List Condition Effective Dates Status [...]
--- OUTSIDE RECORDS SUMMARY | 2019-07-04 07:13 | XMS REPORT ---
Author Author [facility] Address Unknown Phone Unavailable Care Team Providers Care Blood Bank Business Manager Name Role Phone BRIANNA CERVANTES Unavailable Unavailable Problems This patient has no known problems. Allergies, Adverse Reactions, Alerts This patient has no known allergies or adverse reactions. Medications This patient has no known medications. Results Test Description Test Time Test Comments Text Results Atomic Results Result Comments CHEST 2 VIEWS 2019-07-02 15:57:00 [place] [address] Patient Name: MARYAN MEZA MR #: [id number] : 1950 Age/Sex: 69/F Req #: [id number] [facility] Physician: Ordered by: BRIANNA CERVANTES MD Report #: [id number] Location: OR Room/Bed: Procedure: [id number] DX/CHEST 2 VIEWS Exam Date: 07/02/19 Exam Time: 1536 REPORT STATUS: Signed EXAMINATION: CHEST 2 VIEWS INDICATION: Pre-operative COMPARISON: None FINDINGS: LINES/TUBES:None LUNGS:The lungs are well-inflated. No focal consolidation or pulmonary edema. PLEURA:No pleural effusion or pneumothorax. MEDIASTINUM:The cardiomediastinal silhouette appears normal in size and shape. BONES/SOFT TISSUES:No acute osseous injury. Degenerative changes of the visualized spine. ABDOMEN:No free air under the diaphragm. IMPRESSION: No focal pneumonia or pulmonary edema. Signed by: Sari Qiu MD on 07/02/2019 3:58 PM Dictated By: SARI QIU MD 57 Transcribed By: CHAO on 07/02/191557 COPY TO: BRIANNA CERVANTES MD LIPID PANEL 2018-09-17 12:54:00 TRIGLYCERIDES (BEAKER) (test totv=619) 186 mg/dL CHOLESTEROL (BEAKER) (test jspn=488) 218 mg/dL HDL CHOLESTEROL (BEAKER) (test jdpn=245) 69 mg/dL LDL CHOLESTEROL CALCULATED (BEAKER) (test qoxl=113) 112 mg/dL Triglyceride Reference Range: Low Risk <150 Borderline 150-199 High Risk 200-499 Very High Risk >=500Cholesterol Reference Range: Low Risk <200 Borderline 200-239 High Risk >240HDL Cholesterol Reference Range: Low Risk >=60 High Risk <40LDL Cholesterol Reference Range: Optimal <100 Near Optimal 100-129 Borderline 130-159 High 160-189 Very High >=190 BASIC METABOLIC [id number] 12:54:00* Test Item Value Reference Range Comments SODIUM (BEAKER) (test apan=837) 137 meq/L 136-145 POTASSIUM (BEAKER) (test lipl=188) 4.5 meq/L 3.5-5.1 CHLORIDE (BEAKER) (test bgfe=589) 104 meq/L 98-107 CO2 (BEAKER) (test oamc=594) 25 meq/L 22-29 BLOOD UREA NITROGEN (BEAKER) (test scge=218) 25 mg/dL 7-21 CREATININE (BEAKER) (test idyd=880) 0.93 mg/dL 0.57-1.25 GLUCOSE RANDOM (BEAKER) (test xuiz=932) 89 mg/dL 70-105 CALCIUM (BEAKER) (test xqin=324) 9.7 mg/dL 8.4-10.2 EGFR (BEAKER) (test tnpf=5645) 60 mL/min/1.73 sq m ESTIMATED GFR IS NOT ACCURATE CREATININE CLEARANCE IN PREDICTING GLOMERULAR FILTRATION RATE. ESTIMATED GFR IS NOT APPLICABLE FOR DIALYSIS PATIENTS. HEPATIC FUNCTION [id number] 12:54:00* Test Item Value Reference Range Comments TOTAL PROTEIN (BEAKER) (test zuja=862) 7.4 gm/dL 6.0-8.3 ALBUMIN (BEAKER) (test tgle=2817) 4.3 g/dL 3.5-5.0 BILIRUBIN TOTAL (BEAKER) (test xwjf=028) 0.3 mg/dL 0.2-1.2 BILIRUBIN DIRECT (BEAKER) (test pxek=589) 0.1 mg/dL 0.1-0.5 ALKALINE PHOSPHATASE (BEAKER) (test tmdt=131) 68 U/L 40-150 AST (SGOT) (BEAKER) (test kyne=556) 30 U/L 5-34 ALT (SGPT) (BEAKER) (test wrob=587) 34 U/L 6-55 RAD, CHEST, 2 [id number] 12:32:00Reason for Exam:->i65.23FINAL REPORT INDICATION: i65.23 COMPARISON: None TECHNIQUE: Frontal and lateral views of the chest. FINDINGS: Lungs and pleura: Clear lungs. No effusion.Heart and mediastinum: Normal heart size. Unremarkable mediastinal contours.Osseous structures: No acute abnormality.Additional findings: None. IMPRESSION: No acute intrathoracic abnormality. Signed: JR Bell Robert MDReport Verified Date/Time: 09/17/2018 12:32:08 Reading Location: [facility] Radiology Reading Room Electronically signed by: JAMES boswell 09/17/2018 12:32 PM CBC W/PLT COUNT & AUTO [id number] 12:05:00* Test Item Value Reference Range Comments WHITE BLOOD CELL COUNT (BEAKER) (test pdoo=539) 6.1 K/ L 3.5-10.5 RED BLOOD CELL COUNT (BEAKER) (test gijy=753) 4.23 M/ L 3.93-5.22 HEMOGLOBIN (BEAKER) (test biwr=626) 13.7 GM/DL 11.2-15.7 HEMATOCRIT (BEAKER) (test nohc=997) 40.9 % 34.1-44.9 MEAN CORPUSCULAR VOLUME (BEAKER) (test rzqi=635) 96.7 fL 79.4-94.8 MEAN CORPUSCULAR HEMOGLOBIN (BEAKER) (test gjlr=708) 32.4 pg 25.6-32.2 MEAN CORPUSCULAR HEMOGLOBIN CONC (BEAKER) (test zgfx=017) 33.5 GM/DL 32.2-35.5 RED CELL DISTRIBUTION WIDTH (BEAKER) (test dkos=754) 11.9 % 11.7-14.4 PLATELET COUNT (BEAKER) (test mqfp=043) 289 K/CU MM 150-450 MEAN PLATELET VOLUME (BEAKER) (test dkwp=508) 9.7 fL 9.4-12.3 NUCLEATED RED BLOOD CELLS (BEAKER) (test yixd=561) 0 /100 WBC 0-0 NEUTROPHILS RELATIVE PERCENT (BEAKER) (test ojkp=795) 66 % LYMPHOCYTES RELATIVE PERCENT (BEAKER) (test obyp=800) 22 % MONOCYTES RELATIVE PERCENT (BEAKER) (test nmsu=801) 8 % EOSINOPHILS RELATIVE PERCENT (BEAKER) (test zclk=688) 4 % BASOPHILS RELATIVE PERCENT (BEAKER) (test sxfx=213) 1 % NEUTROPHILS ABSOLUTE COUNT (BEAKER) (test kqdg=199) 4.00 K/ L 1.56-6.13 LYMPHOCYTES ABSOLUTE COUNT (BEAKER) (test oyil=083) 1.31 K/ L 1.18-3.74 MONOCYTES ABSOLUTE COUNT (BEAKER) (test eqlb=887) 0.49 K/ L 0.24-0.36 EOSINOPHILS ABSOLUTE COUNT (BEAKER) (test wkks=956) 0.21 K/ L 0.04-0.36 BASOPHILS ABSOLUTE COUNT (BEAKER) (test cjqv=093) 0.03 K/ L 0.01-0.08 IMMATURE GRANULOCYTES-RELATIVE PERCENT (BEAKER) (test dail=1010) 0 % 0-1
--- OUTSIDE RECORDS SUMMARY | 2019-07-04 07:13 | XMS REPORT | Summary of Care ---
Author Author [facility] Organization [facility] Address Unknown Phone Unavailable Encounter HQ Sloane_deborah(FIN) [id number] Date(s): 04/25/18 - 04/25/18 [facility] [address] [place] [address]- Encounter Diagnosis Nicotine dependence, cigarettes, with unspecified nicotine-induced disorders (Final) - 04/30/18 Discharge Disposition: Home or Self Care Attending Physician: Tiago Dong MD Referring Physician: Tiago Dong MD Vital Signs No data available for [...] Smoking Cessation Counseling Yes entered on: 05/12/16 Assessment and Plan No data available for this section
--- OUTSIDE RECORDS SUMMARY | 2019-07-04 07:13 | XMS REPORT | Summary of Care ---
Author Author [facility] Outpatient Imaging [facility] [place] Address Unknown Phone Unavailable Encounter HQ Sloane_deborah(FIN) [id number] Date(s): 03/07/17 - 03/07/17 [facility] Out[facility] [place] [address] [place] [address], [address] [place], [place] [address]- [phone] Discharge Disposition: Home or Self Care Attending [...]
--- OUTSIDE RECORDS SUMMARY | 2019-07-04 07:13 | XMS REPORT | Summary of Care ---
Author Author [facility] Outpatient Imaging [facility] [place] Address Unknown Phone Unavailable Encounter HQ Encntr_alias(FIN) [id number] Date(s): 06/26/18 - 06/26/18 [facility] [place] [address] [facility] [place], [place] [address]- [phone] Encounter Diagnosis Pain in left elbow (Final) - 09/08/18 Effusion, left elbow (Final) - Discharge Disposition: Home or Self Care Attending Physician: Redd Saenz MD Referring Physician: Redd Saenz MD Vital Signs No data available for [...]
--- OUTSIDE RECORDS SUMMARY | 2019-07-04 07:13 | XMS REPORT | Summary of Care ---
Author Author [facility] Address Unknown Phone Unavailable Encounter CLARITZA Etienne(GARRET) [id number] Date(s): 11/27/15 - 12/26/15 [place] [address] [address] Discharge Disposition: Home Attending Physician: Cookie Rockwell MD Vital Signs No data available [...]
--- OUTSIDE RECORDS SUMMARY | 2019-07-04 07:13 | XMS REPORT | Summary of Care ---
Author Author [facility] Address Unknown Phone Unavailable Encounter CLARITZA Etienne(GARRET) [id number] Date(s): 12/29/15 - 01/27/16 [place] [address] [address] Discharge Disposition: Home Attending Physician: Cookie [...]
--- OUTSIDE RECORDS SUMMARY | 2019-07-04 07:13 | XMS REPORT | Summary of Care ---
Author Author [facility] Address Unknown Phone Unavailable Encounter CLARITZA Etienne(GARRET) [id number] Date(s): 11/02/15 - 12/01/15 [facility] [address] [place], [place] [address] [place] [address] Discharge Disposition: Home Attending Physician: Cookie Rockwell MD Referring Physician: Cookie Rockwell MD Vital Signs Most recent to 1 oldest [Reference Range]: Blood Pressure 138/73 mmHg [90-140/60-90 mmHg] (11/02/15 11:37 AM) Peripheral Pulse 99 bpm Rate [60-100 bpm] (11/02/15 11:37 AM) Problem List Condition Effective Dates Status [...]
--- OUTSIDE RECORDS SUMMARY | 2019-07-04 07:13 | XMS REPORT | Summary of Care ---
Author Author [facility] Organization [facility] Address Unknown Phone Unavailable Encounter HQ Andrewr_deborah(FIN) [id number] Date(s): 04/25/18 - 04/25/18 [facility] [address] [place] [address]- [phone] Discharge Disposition: Home or Self Care Attending [...]
--- OUTSIDE RECORDS SUMMARY | 2019-07-04 07:13 | XMS REPORT | Summary of Care ---
Author Author [facility] Address Unknown Phone Unavailable Encounter CLARITAZ Etienne(GARRET) [id number] Date(s): 02/16/16 - 02/16/[address] Discharge Disposition: Home Attending Physician: Cookie Rockwell MD Referring Physician: Cookie Rockwell MD Vital Signs Most recent to 1 oldest [Reference Range]: Blood Pressure 106/61 mmHg [90-140/60-90 mmHg] (02/16/16 2:10 PM) Respiratory Rate 16 BRMIN [14-20 BRMIN] (02/16/16 2:10 PM) Peripheral Pulse 89 bpm Rate [60-100 bpm] (02/16/16 2:10 PM) Problem List Condition Effective Dates Status [...] Status sulfa drugs Gentamicin Sulfate,0.1%,Topical,cream Active Medications ONAbotulinumtoxinA 600 unit, Route: IM, Drug form: INJ, ONCALL, Dosing Weight 72.273, kg, Start carlos e: 02/16/16 15:00:00 CDT, Duration: 1 doses or times Notes: "TO BE RECONSTITUTED AND ADMINISTERED ONLY BY A PHYSICIAN"Reconstitute wi th preservative free NS only. Stability=4 hours after reconstitution. (Same As: Botox)WASTE: F/P - Red; E -Red Pass through med: charges in 1 unit increments. Start Date: 02/16/16 Stop Date: 02/16/16 Status: Completed sodium chloride 20 mL, Route: MISC, Start date: 02/16/16 15:00:00 CDT, Duration: 1 doses or time s Notes: preservative free. Start Date: 02/16/16 Stop Date: 02/16/16 Status: Completed trazodone 50 mg oral tablet See Instructions, # 30 tab, TAKE ONE TABLET BY MOUTH EVERY NIGHT AT BEDTIME N EEDED FOR INSOMNIA, Pharmacy: [place] [id number] Start Date: 02/04/16 Status: Ordered Results No data available for [...]
== END ==
LOC: RAD 05:00 → OR 07-04 07:08 → EDSTATUS 07-04 08:30
PROVIDERS: ATTEND Plastic Surgery
DX: G81.14 Spastic hemiplegia affecting left nondominant side (principal); Z01.810 Encounter for preprocedural cardiovascular examination; Z01.812 Encounter for preprocedural laboratory examination; Z01.818 Encounter for other preprocedural examination; Z53.09 Procedure and treatment not carried out because of other contraindication
CPT/HCPCS: 36415; 71046; 85025; 93005

== ENCOUNTER → 2019-07-30 | Day surgery (SDC) | payer MEDICARE, BC, OTHER ==
[~2019-07-30] MED LIST changes: +BUPIVACAINE HCL 0.5% INJ 30 ML VIAL INJ ONE; +CEFAZOLIN SOD 1 GM/NS 50ML 50 ML IV ONE; +DEXAMETHASONE SOD PHOS INJ 4 MG/ML VIAL ONE; +EPHEDRINE SULFATE INJ 50 MG/10 ML SYR ONE; +FENTANYL CITRATE/PF 100MCG/2 ML INJ ONE; +GLYCOPYRROLATE INJ 1MG/ 5 ML SYR ONE; +LIDOCAINE HCL 2% LOCAL INJ 5 ML SDV VIAL INJ ONE; +MUPIROCIN 2% OINT 22 GM TUBE ONE; +NEOSTIGMINE 5 MG/5ML SYR ONE; +ONDANSETRON HCL INJ 2MG/ML 2ML 2 MG/ML VIAL ONE; +PEPTO-BISM262 MG/15 PO; +PHENYLEPHRINE HCL 1% 10 MG/ML VIAL ONE; +PROPOFOL IV EMULSION 10 MG/ML 20 ML VIAL ONE; +ROCURONIUM BROMIDE 10 MG/ML 5ML VIAL ONE; +SEVOFLURANE INHAL SOLN 250 ML PEN BTL ONE
[2019-07-30 11:36] VITALS: BP 119/62
--- NOTE | 2019-07-30 13:49 | Operative Report ---
DATE OF PROCEDURE: 07/30/2019 SURGEON: Pj Yoo MD PREOPERATIVE DIAGNOSES: 1. Spastic paralysis, left thumb. 2. Spastic paralysis, left index finger. POSTOPERATIVE DIAGNOSES: 1. Spastic paralysis, left thumb. 2. Spastic paralysis, left index finger. PROCEDURES PERFORMED: 1. Tendon lengthening, left thumb flexor pollicis longus tendon. 2. Superficialis to profundus transfer of left index finger flexor tendons. ANESTHESIA: General. 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 Neurology service has been Botoxing the musculature, however, recently the Botox has become noneffective. The risks, benefits, and alternatives of treatment were discussed with the patient and the family. They are prepared to undergo the procedure as outlined. PROCEDURE IN DETAIL: The patient was marked preoperatively in the holding area. She was brought to the operating theater and after the induction of adequate general anesthesia, she was prepped and draped in a supine position and a time-out was performed. The procedure was begun by marking an incision from the base of the left palm over the palmaris longus tendon and extending it proximally to the musculotendinous junction. The left upper extremity was exsanguinated and the tourniquet was inflated to a pressure of 250 mmHg. The incision was made through the skin and subcutaneous tissues. All venous tributaries were controlled with bipolar cautery. The palmaris longus tendon was identified immediately in the subcutaneous plane. It was transected distally at its attachment to the palmar fascia at the base of the palm and then reflected back. The volar forearm fascia was divided and the median nerve was identified, and then retracted and protected and preserved. Underneath the wrist flexor on the radial side, the FPL tendon was identified and by step cutting it, the tendon was then transected, and then the thumb was placed through a range of motion. When the optimum position of the thumb was obtained, the two ends of the cut FPL tendon were then reanastomosed using 3-0 Supramid in an interrupted sludqt-[id number] fashion. The thumb was then placed through a range of motion and the new anastomotic site was noted to glide smoothly, and there was full range of motion on the thumb. Attention was then turned to the identification of the FTP and FDS tendons to the left index finger. Once these tendons had been isolated, the superficialis tendon was transected distally at the level of the distal wrist proximal palm. The FDP tendon was transected proximally just distal to the musculotendinous junction. By placing the hand and wrist and fingers through range of motion, the optimum length of the index finger tendons was obtained and then the proximal portion of the superficialis tendon was then sutured to the distal stump of the profundus tendon. Once again, this anastomosis was performed with 3-0 Supramid in an interrupted buried lzpyjl-ju-zkquq fashion. At this point, the hand, wrist, and fingers were placed through a passive range of motion. There was noted to be good tenodesis effect. However, the spastic contracture of the thumb and index finger allowed this fingers to be brought out of the palm easily. The wound was irrigated with bacteriostatic saline and closed with a 5-0 nylon in an interrupted horizontal mattress fashion and a Marcaine field block was performed at the operative site. The tourniquet was deflated. All the fingers pinked up nicely. The wound was noted to be hemostatic. The patient was placed in a sterile bulking conforming bandage. Ortho-Glass splint was then applied to maintain the wrist in approximately 30 degrees of extension, the MPs at 60 to 70 degrees of flexion and the IPs neutral, and then a dorsally based thumb spica splint was placed over the thumb to prevent it from antwan into the palm. This was held in place with a loosely wrapped Anthony wrap. The patient tolerated the procedure well and was brought to recovery room in satisfactory condition and discharged with a postoperative instruction sheet as well as a followup appointment. MD DAHIANA Vivas/TAURUS /[id number]
== END | disposition home or self-care (01) ==
LOC: OR 06:44
PROVIDERS: ATTEND Plastic Surgery
DX: G81.14 Spastic hemiplegia affecting left nondominant side (principal); R32 Unspecified urinary incontinence; I10 Essential (primary) hypertension; E78.5 Hyperlipidemia, unspecified; E03.9 Hypothyroidism, unspecified; M54.9 Dorsalgia, unspecified; F32.9 Major depressive disorder, single episode, unspecified; F41.9 Anxiety disorder, unspecified; Z88.2 Allergy status to sulfonamides; Z79.82 Long term (current) use of aspirin
CPT/HCPCS: 25310; 26478; J0690; J1100; J2001; J2370; J2405; J2704; J3010; J3490